=== PATIENT | male | born 1950 | race Caucasian/White ===

== ENCOUNTER → 2017-11-22 12:16 | Outpatient (CLI) | payer MEDICARE, SELFPAY ==
[2017-11-22 12:54] LABS: Alanine Aminotransferase 28 IU/L (21-72); Albumin 4.4 g/dL (3.5-5.0); Albumin Globulin Ratio 1.5 (1.0-2.8); Alkaline Phosphatase 49 U/L (38-126); Aspartate Aminotransferase 31 IU/L (17-59); BUN Creatinine Ratio 21.3 (6-22); Bilirubin Total 1.7 mg/dL (0.2-1.3); Blood Urea Nitrogen 17 mg/dL (9-20); Calcium 9.8 mg/dL (8.4-10.2); Carbon Dioxide 31 mmol/L (22-32); Chloride 97 mmol/L (98-107); Cholesterol 139 mg/dL (140-199); Estimated Glomerular Filt Rate > 60.0 mL/min (>60); Globulin 2.9 g/dL (1.7-4.1); Glucose 160 mg/dL (80-110); HDL Cholesterol 41 mg/dL (40-60); HEMOLYSIS 19 (0-50); LDL Cholesterol Calculated 55 mg/dL (<100); Potassium 4.1 mmol/L (3.4-5.1); Sodium 139 mmol/L (137-145); Total Protein 7.3 g/dL (6.3-8.2); Triglycerides 214 mg/dL (35-150)
[2017-11-22 12:56] LABS: Hemoglobin A1C% w Est Avg Glu 6.9 % (4.0-6.0)
[2017-11-22 13:05] LABS: Add Manual Diff / Slide Review NO; Basophils Percent Auto 0.7 % (0-2); Eosinophils Percent Auto 6.9 % (2-4); Hematocrit 47.2 % (41-53); Hemoglobin 15.8 g/dL (13.5-17.5); Lymphocytes Percent Auto 27.2 % (25-40); Mean Corpuscular HGB Conc 33.6 % (30-36); Mean Corpuscular Hemoglobin 29.6 PG (26-34); Mean Corpuscular Volume 88.3 fL (80-100); Monocytes Percent Auto 5.4 % (3-14); Neutrophils Absolute Auto 4900 /uL (3000-5900); Neutrophils Percent Auto 59.8 % (50-75); Platelet Count 154 X10^3/uL (150-400); Red Blood Cell Count 5.34 X10^6/uL (4.5-5.9); Red Cell Distribution Width 14.3 % (11.6-14.8); White Blood Cell Count 8.2 X10^3/uL (4.5-11.0)
[2017-11-22 16:36] LABS: Thyroid Stimulating Hormone 1.26 uIU/mL (0.47-4.68)
[2017-11-23 16:24] LABS: Microalbumi Creatinin Ratio Ur 12.4 ug/mg CR (<30); Microalbumin Urine Random < 0.6 mg/dL (0-1.6)
== END ==
PROVIDERS: Family Provider Internal Medicine; PCP Internal Medicine; Visit Provider Internal Medicine
DX: E78.5 Hyperlipidemia, unspecified (principal); I10 Essential (primary) hypertension; E11.9 Type 2 diabetes mellitus without complications
CPT/HCPCS: 36415; 80053; 80061; 82043; 82570; 83036; 84443; 85025

== ENCOUNTER → 2018-02-01 14:00 | Outpatient (CLI) | payer MEDICARE, SELFPAY ==
[2018-02-01 14:31] LABS: Add Manual Diff / Slide Review NO; Basophils Percent Auto 0.7 % (0-2); Eosinophils Percent Auto 5.4 % (2-4); Hematocrit 47.4 % (41-53); Hemoglobin 16.2 g/dL (13.5-17.5); Lymphocytes Percent Auto 27.1 % (25-40); Mean Corpuscular HGB Conc 34.1 % (30-36); Mean Corpuscular Hemoglobin 30.1 PG (26-34); Mean Corpuscular Volume 88.1 fL (80-100); Monocytes Percent Auto 5.9 % (3-14); Neutrophils Absolute Auto 5400 /uL (3000-5900); Neutrophils Percent Auto 60.9 % (50-75); Platelet Count 171 X10^3/uL (150-400); Red Blood Cell Count 5.38 X10^6/uL (4.5-5.9); Red Cell Distribution Width 14.1 % (11.6-14.8); White Blood Cell Count 8.8 X10^3/uL (4.5-11.0)
[2018-02-01 14:50] LABS: Alanine Aminotransferase 36 IU/L (21-72); Albumin 4.5 g/dL (3.5-5.0); Albumin Globulin Ratio 1.4 (1.0-2.8); Alkaline Phosphatase 50 U/L (38-126); Aspartate Aminotransferase 42 IU/L (17-59); BUN Creatinine Ratio 18.8 (6-22); Bilirubin Total 1.3 mg/dL (0.2-1.3); Blood Urea Nitrogen 15 mg/dL (9-20); C-Reactive Protein Quant 1.2 mg/dL (<1.0); Carbon Dioxide 35 mmol/L (22-32); Chloride 98 mmol/L (98-107); Estimated Glomerular Filt Rate > 60.0 mL/min (>60); Globulin 3.2 g/dL (1.7-4.1); Glucose 164 mg/dL (80-110); HEMOLYSIS < 15 (0-50); Sodium 143 mmol/L (137-145); Total Protein 7.7 g/dL (6.3-8.2)
[2018-02-01 14:59] LABS: Erythrocyte Sedimentation Rate 4 MM/HR (0-15)
== END ==
PROVIDERS: PCP Internal Medicine; Visit Provider Specialist/Technologist Athletic Trainer
DX: M54.9 Dorsalgia, unspecified (principal); S32.040S Wedge compression fracture of fourth lumbar vertebra, sequela; M10.9 Gout, unspecified; H20.9 Unspecified iridocyclitis; E55.9 Vitamin D deficiency, unspecified
CPT/HCPCS: 36415; 80053; 85025; 85651; 86140

== ENCOUNTER → 2018-02-02 13:00 | Outpatient (CLI) | payer MEDICARE, SELFPAY | PROVIDERS: Family Provider Internal Medicine; PCP Internal Medicine | DX: Z23 Encounter for immunization (principal) | CPT/HCPCS: 90471; 90662 ==

== ENCOUNTER → 2018-06-12 15:33 | Outpatient (CLI) | payer MEDICARE, SELFPAY ==
--- NOTE | 2018-06-12 | DI.RAD.S_ITS ---
PROCEDURE: XR ABDOMEN 1V INDICATIONS: HISTORY OF KIDNEY STONES TECHNIQUE: One view of the abdomen acquired. COMPARISON: [facility], , ABDOMEN 1 VIEW, 04/10/2017, 11:47. FINDINGS: Surgical changes and devices: None. Bowel: Bowel gas pattern is normal. Soft tissues: At least 2 stones are seen right kidney measuring 10 mm and 8 mm, unchanged from the last exam. The left renal contour is obscured by overlying stool content. Visualized solid organ contours appear normal in size. A large amount of stool in colon. Bones: No suspicious bony lesions. Old left femoral neck fracture with internal fixation. Severe left and mild right hip joint degeneration. There is bridging osteophytes throughout the lower thoracic and lumbar spine. There is bilateral SI joint ankylosis. IMPRESSION: 1. 2 right renal calculi, unchanged. 2. A large amount of stool in colon. 3. Ankylosis of the spine and sacroiliac joints, suspicious for ankylosing spondylitis. Recommend clinical correlation. Dictated by: Gissell Kirby M.D. on 06/12/2018 at 17:28 Approved by: Gissell Kirby M.D. on 06/12/2018 at 17:33
== END ==
PROVIDERS: Family Provider Student in an Organized Health Care Education/Training Program; PCP Student in an Organized Health Care Education/Training Program; Visit Provider Urology
DX: Z12.5 Encounter for screening for malignant neoplasm of prostate (principal); Z87.442 Personal history of urinary calculi
CPT/HCPCS: 36415; 74018; 84153

== ENCOUNTER → 2018-07-24 09:19 | Outpatient (CLI) | payer MEDICARE, SELFPAY ==
--- NOTE | 2018-07-24 | DI.ECHO.S_ITS ---
[facility] +---------+ : : [address] : : : : [place], [place] : : : : [id number] : : : : Phone: [phone]---------+ Echocardiogram Report + + :Name: LESLIE FLORENCE Study Date: 07/24/2018 Height: 69 in : :[facility] Exam Location: IS Weight: 175 lb : : Gender: Male BSA: 2.0 m2 : :: 1950 Age: 68 yrs BP: 125/90 mmHg: :Reason For Study: CAD : : Performed By: Kathy Page : :Referring: ARCADIO MENDOZA : + + Interpretation Summary Left ventricular wall thickness is borderline increased. The ejection fraction is estimated to be 60-65%. There is no significant valvular heart disease. Procedure: A two-dimensional transthoracic echocardiogram with color flow and Doppler was performed. The study quality was technically adequate. There is a prior available with images only from 06/06/2003. The patient was in normal sinus rhythm during the exam. Left Ventricle: The left ventricular cavity is small. Left ventricular wall thickness is borderline increased. The ejection fraction is estimated to be 60-65%. There are no focal wall motion abnormalities. Right Ventricle: The right ventricle is normal in size and function. Atria: Both atria are normal in size. There is no Doppler evidence for an interatrial shunt. Mitral Valve: The mitral valve is normal in structure and function. There is trace mitral regurgitation. Aortic Valve: The aortic valve is trileaflet. The aortic valve opens well. No aortic regurgitation is present. Tricuspid Valve: The tricuspid valve is normal in structure and function. There is a trace or physiologic amount of tricuspid regurgitation. Pulmonary artery pressures cannot be estimated because of the lack of a measurable TR jet velocity. Pulmonic Valve: The pulmonic valve is not well visualized. There is trace pulmonic regurgitation. Great Vessels: The aortic root is normal size. The ascending aorta is normal in size. The pulmonary artery is not well visualized, but is probably normal size. The IVC is of normal diameter and collapses greater than 50% with a sniff. This suggests a low right atrial pressure of 3 mm Hg. Pericardium/ Pleura There is no pericardial effusion. MMode/2D Measurements & Calculations LVIDd: 3.7 cm Ao root diam: 3.3 cm LVIDs: 2.7 cm asc Aorta Diam: 3.3 cm FS: 26.5 % EPSS: 0.45 cm IVSd: 1.0 cm LVPWd: 1.1 cm LV chairez. diameter/BSA (cm/m^2): 1.9 LV sys. diameter/BSA (cm/m^2): 1.4 LA A2 area: 19.3 cm2 RA long axis: 4.9 cm LA A4 area: 16.7 cm2 RA area: 17.4 cm2 LA length (vol): 4.9 cm RA vol: 52.8 ml LA vol: 55.6 ml RA : 27.0 ml/m2 LA vol index: 28.5 ml/m2 IVC diam: 1.9 cm RVD1 (basal): 3.6 cm TAPSE: 2.0 cm Doppler Measurements & Calculations Ao V2 max: 120.6 cm/sec LVOT Max Calvin: 89.2 cm/sec Ao V2 mean: 86.1 cm/sec LV V1 max P.2 mmHg Ao max P.8 mmHg LV V1 VTI: 16.7 cm Ao mean P.3 mmHg sev ratio: 0.70 Ao V2 VTI: 23.9 cm MV E max calvin: 66.2 cm/sec PA V2 max: 79.0 cm/sec MV A max calvin: 88.3 cm/sec PA V2 mean: 55.9 cm/sec MV E/A: 0.75 PA mean P.4 mmHg Med Peak E' Calvin: 3.9 cm/sec PA Accel Time: 0.10 sec E/E' med: 17.0 Lat Peak E' Calvin: 4.3 cm/sec E/E' lat: 15.3 E/e' average: 16.2 MV dec time: 0.27 sec MV P1/2t: 79.7 msec MV P1/2t max calvin: 66.9 cm/sec MVA(P1/2t): 2.8 cm2 Reading Physician:05:34 PM
--- NOTE | 2018-07-24 09:23 | DI.US.S_ITS ---
PROCEDURE: US ABD AORTA ANEURYSM SCREEN INDICATIONS: AAA screen in former smoker TECHNIQUE: Real time scanning was performed of the aorta and iliac arteries, with image documentation. COMPARISON: [facility], CT, PELVIS WITH CONTRAST, 11/01/2014, 17:28. FINDINGS: Aorta: Proximal aortic diameter measures 2.3 cm. Mid-aorta measures 1.7 cm. Distal aortic diameter is 1.5 cm. Iliac arteries: Right common iliac artery measures 0.9 cm. Left common iliac artery measures 0.9 cm. IMPRESSION: No evidence for abdominal aortic aneurysm. Dictated by: Gissell Kirby M.D. on 07/24/2018 at 12:39 Approved by: Gissell Kirby M.D. on 07/24/2018 at 12:40
== END ==
PROVIDERS: PCP Student in an Organized Health Care Education/Training Program; Visit Provider Student in an Organized Health Care Education/Training Program
DX: Z13.6 Encounter for screening for cardiovascular disorders (principal); I25.10 Atherosclerotic heart disease of native coronary artery without angina pectoris; Z87.891 Personal history of nicotine dependence
CPT/HCPCS: 76706; 93306

== ENCOUNTER → 2018-10-15 11:15 | Outpatient (CLI) | payer MEDICARE, SELFPAY ==
[2018-10-15 13:09] LABS: Blood Urea Nitrogen 16 mg/dL (9-20); Calcium 9.6 mg/dL (8.4-10.2); Carbon Dioxide 30 mmol/L (22-32); Chloride 97 mmol/L (98-107); Estimated Glomerular Filt Rate > 60.0 mL/min (>60); Glucose 142 mg/dL (80-110); HEMOLYSIS 21 (0-50); Potassium 3.9 mmol/L (3.4-5.1); Sodium 137 mmol/L (137-145)
[2018-10-15 16:29] LABS: Creatinine Urine Random 84.6 mg/dL
[2018-10-15 16:35] LABS: Microalbumi Creatinin Ratio Ur 9.4 ug/mg CR (<30); Microalbumin Urine Random 0.8 mg/dL (0-1.6)
== END ==
PROVIDERS: PCP Student in an Organized Health Care Education/Training Program; Visit Provider Student in an Organized Health Care Education/Training Program
DX: E11.9 Type 2 diabetes mellitus without complications (principal); I10 Essential (primary) hypertension
CPT/HCPCS: 36415; 80048; 82043; 82570; 83036

== ENCOUNTER → 2019-03-05 14:55 | Outpatient (CLI) | payer MEDICARE, SELFPAY | PROVIDERS: PCP Student in an Organized Health Care Education/Training Program | DX: Z23 Encounter for immunization (principal) | CPT/HCPCS: 90471; 90662 ==

== ENCOUNTER → 2019-04-17 14:31 | Outpatient (CLI) | payer MEDICARE, SELFPAY ==
[2019-04-17 15:40] LABS: BUN Creatinine Ratio 22.5 (6-22); Blood Urea Nitrogen 18 mg/dL (9-20); Calcium 9.8 mg/dL (8.4-10.2); Carbon Dioxide 27 mmol/L (22-32); Chloride 101 mmol/L (98-107); Estimated Glomerular Filt Rate > 60.0 mL/min (>60); Glucose 135 mg/dL (80-110); HEMOLYSIS 15 (0-50); Potassium 4.5 mmol/L (3.4-5.1); Sodium 140 mmol/L (137-145)
[2019-04-17 15:52] LABS: Hemoglobin A1C% w Est Avg Glu 7.6 % (4.0-6.0)
== END ==
PROVIDERS: PCP Student in an Organized Health Care Education/Training Program; Visit Provider Student in an Organized Health Care Education/Training Program
DX: E11.9 Type 2 diabetes mellitus without complications (principal); I10 Essential (primary) hypertension; M10.9 Gout, unspecified
CPT/HCPCS: 36415; 80048; 83036

== ENCOUNTER → 2019-06-27 14:39 | Outpatient (CLI) | payer MEDICARE, SELFPAY ==
[2019-06-27 16:36] LABS: Prostate Specific Antigen 2.23 ng/mL (0.10-4.00)
== END ==
PROVIDERS: PCP Student in an Organized Health Care Education/Training Program; Referring Provider Urology; Visit Provider Urology
DX: Z12.5 Encounter for screening for malignant neoplasm of prostate (principal)
CPT/HCPCS: 36415; 84153; G0103

== ENCOUNTER → 2019-07-08 15:00 | Outpatient (CLI) | payer MEDICARE, SELFPAY ==
[2019-07-08 18:04] LABS: Add Manual Diff / Slide Review NO; Basophils Absolute Auto 100 /uL (0-100); Basophils Percent Auto 0.6 % (0-2); Eosinophils Absolute Auto 700 /uL (0-450); Eosinophils Percent Auto 7.7 % (2-4); Hematocrit 50.4 % (41-53); Hemoglobin 16.9 g/dL (13.5-17.5); Lymphocytes Absolute Auto 2400 /uL (1100-4500); Lymphocytes Percent Auto 26.3 % (25-40); Mean Corpuscular HGB Conc 33.5 % (30-36); Mean Corpuscular Hemoglobin 29.8 PG (26-34); Monocytes Absolute Auto 400 /uL (0-900); Monocytes Percent Auto 4.8 % (3-14); Neutrophils Absolute Auto 5600 /uL (1500-7000); Neutrophils Percent Auto 60.6 % (50-75); Platelet Count 142 X10^3/uL (150-400); Red Blood Cell Count 5.66 X10^6/uL (4.5-5.9); Red Cell Distribution Width 14.7 % (11.6-14.8); White Blood Cell Count 9.3 X10^3/uL (4.5-11.0)
[2019-07-08 18:07] LABS: BUN Creatinine Ratio 23.3 (6-22); Blood Urea Nitrogen 21 mg/dL (9-20); Carbon Dioxide 26 mmol/L (22-32); Chloride 99 mmol/L (98-107); Cholesterol 127 mg/dL (140-199); Estimated Glomerular Filt Rate > 60.0 mL/min (>60); Glucose 133 mg/dL (80-110); HDL Cholesterol 36 mg/dL (40-60); HEMOLYSIS < 15 (0-50); LDL Cholesterol Calculated 36 mg/dL (<100); Potassium 4.1 mmol/L (3.4-5.1); Sodium 141 mmol/L (137-145); Triglycerides 274 mg/dL (35-150)
== END ==
PROVIDERS: PCP Student in an Organized Health Care Education/Training Program; Referring Provider Internal Medicine Cardiovascular Disease; Visit Provider Internal Medicine Cardiovascular Disease
DX: E78.5 Hyperlipidemia, unspecified (principal); I10 Essential (primary) hypertension
CPT/HCPCS: 36415; 80048; 80061; 85025

== ENCOUNTER → 2019-09-25 13:44 | Outpatient (CLI) | payer MEDICARE, SELFPAY ==
[2019-09-25 15:15] LABS: Hemoglobin A1C% w Est Avg Glu 7.2 % (4.0-6.0)
[2019-09-25 17:45] LABS: Microalbumi Creatinin Ratio Ur 14.8 ug/mg CR (<30); Microalbumin Urine Random 0.8 mg/dL (0-1.6)
== END ==
PROVIDERS: PCP Student in an Organized Health Care Education/Training Program; Referring Provider Student in an Organized Health Care Education/Training Program; Visit Provider Student in an Organized Health Care Education/Training Program
DX: E11.9 Type 2 diabetes mellitus without complications (principal)
CPT/HCPCS: 36415; 82043; 82570; 83036

== ENCOUNTER → 2020-01-21 14:30 | Outpatient (CLI) | payer MEDICARE, SELFPAY ==
[2020-01-21 15:30] LABS: Hemoglobin A1C% w Est Avg Glu 6.6 % (4.0-6.0)
== END ==
PROVIDERS: PCP Student in an Organized Health Care Education/Training Program; Referring Provider Student in an Organized Health Care Education/Training Program; Visit Provider Student in an Organized Health Care Education/Training Program
DX: E11.9 Type 2 diabetes mellitus without complications (principal)
CPT/HCPCS: 36415; 83036

== ENCOUNTER → 2020-02-29 14:09 | Outpatient (CLI) | payer MEDICARE, SELFPAY ==
[2020-03-02 06:05] LABS: COVID19 Sendout Not Detected (Not Detect)
== END ==
PROVIDERS: PCP Student in an Organized Health Care Education/Training Program; Visit Provider Physician Assistant
DX: Z01.812 Encounter for preprocedural laboratory examination (principal)
CPT/HCPCS: 87635

== ENCOUNTER 2020-03-03 06:05 | Day surgery (SDC) | payer MEDICARE, SELFPAY ==
[2020-03-03] MEDS: PROPARACAINE 0.5% OPHTH SOL 2 DROPS EYE-OP (07:04)
[2020-03-03 07:09] VITALS: BMI 25.1
[2020-03-03] MEDS: CATARACT EYE COMPOUND (10 DROPS/SYRINGE) 3 DROPS EYE-OP (07:09)
[2020-03-03 07:16] VITALS: BP 133/80; PULSE 84; RESP 16; TEMP 37.2; O2SAT 97
[2020-03-03 07:18] VITALS: BMI 25.1
--- NOTE | 2020-03-03 07:36 | PM.PREOP ---
Pre-operative Note Interval Note History & Physical reviewed/Exam performed by Physician: Yes Changes to H&P: No
--- NOTE | 2020-03-03 07:36 | PM.OP.1 ---
Operative Date/Time/Diagnoses Pre-op diagnosis: Nuclear Cataract Left eye Post-op diagnosis: same Procedure & Clinicians Same procedure as scheduled: Yes Surgeon: Nico Mills Anesthesia Type: MAC +/- and Sedation Operative Notes Procedure in detail: Patient brought to the operating suite. Tetracaine drops placed in the left eye. Marking instrument was used to david vertical and horizontal meridians. Patient was prepped and draped in sterile manner. Wire lid speculum was placed in the eye. marking instrument was used to david 110 degree meridian. Betadine drops were placed on the eye. This was irrigated. Lidocaine jelly was placed on the eye. A paracentesis port was created with a side-port blade. 0.1 mL 1% preservative free lidocaine was injected into the anterior chamber. The anterior chamber was deepened with viscoelastic. 2.6 mm keratome was used to create a temporal clear corneal incision. Cystotome and Utrata forceps were used to create continuous tear capsulorrhexis. Balanced salt solution was used to hydro dissect the nucleus. The phacoemulsification handpiece was inserted and the nucleus was removed using the stop and chop technique. The irrigation aspiration handpiece was inserted and the remaining cortex was removed. Anterior chamber was deepened with viscoelastic. An Hayward [id number] intraocular lens with a power of 20.0 was injected into the capsular bag. Irrigation aspiration handpiece was inserted and the remaining viscoelastic was removed. The lens was rotated to the 110 degree meridian. Incision was hydrated with balanced salt solution and found to be leak free with pressure with Weck-Mimi sponges. 0.1 mL Vigamox injected anterior chamber. 0.3 mL Kenalog 10 mg was injected subconjunctivally. Lid speculum was removed. The patient left the operating room in excellent condition. Complications: none Post-operative Condition: stable Disposition: same day surgery
[2020-03-03] MEDS: PHENYLEPHRINE/LIDOCAINE VIAL (OR) 0.2 ML EYE-OP (08:20)
[2020-03-03] MEDS: TRIAMCINOLONE 50 MG/5 ML VIAL INJ (08:21)
[2020-03-03] MEDS: MOXIFLOXACIN INJ 5 MG/ML VIAL EYE-OP (08:21)
[2020-03-03] MEDS: CHONDROIDTIN/SOD HYALURONATE 1.05 ML SYRINGE INTRAOCULA (08:21)
[2020-03-03] MEDS: LIDOCAINE JELLY 2% 5 ML 1 APPLIC TOP (08:22)
[2020-03-03] MEDS: TETRACAINE 0.5% OPHTH DROPS 4 ML 2 DROPS EYE-OP (08:22)
[2020-03-03] MEDS: BALANCED SALT IRRIG SOLN NO.2 500 ML, EPINEPHrine 1 MG IRR (08:22)
[2020-03-03 09:45] VITALS: BP 110/73; PULSE 78; RESP 16; TEMP 36.6; O2SAT 96
== END 2020-03-03 08:49 | disposition home or self-care (01) ==
PROVIDERS: PCP Student in an Organized Health Care Education/Training Program; Referring Provider Student in an Organized Health Care Education/Training Program; Visit Provider Ophthalmology
PROC: (CPT 66984; principal; 2020-03-03 07:45)
DX: H25.12 Age-related nuclear cataract, left eye (principal); E11.9 Type 2 diabetes mellitus without complications; Z79.84 Long term (current) use of oral hypoglycemic drugs
CPT/HCPCS: 66984; J0171; J2250; J2704; J3301; V2787

== ENCOUNTER → 2020-03-14 13:43 | Outpatient (CLI) | payer MEDICARE, SELFPAY ==
[2020-03-16 02:22] LABS: COVID19 Sendout Not Detected (Not Detect)
== END ==
PROVIDERS: PCP Student in an Organized Health Care Education/Training Program; Visit Provider Nurse Practitioner
DX: Z11.59 Encounter for screening for other viral diseases (principal)
CPT/HCPCS: 87635

== ENCOUNTER 2020-03-17 06:24 | Day surgery (SDC) | payer MEDICARE, SELFPAY ==
[2020-03-17] MEDS: PROPARACAINE 0.5% OPHTH SOL 2 DROPS EYE-OP (07:00)
[2020-03-17] MEDS: CATARACT EYE COMPOUND (10 DROPS/SYRINGE) 3 DROPS EYE-OP (07:04)
[2020-03-17 07:05] VITALS: BMI 15.5
[2020-03-17 07:10] VITALS: BP 122/73; PULSE 74; RESP 14; TEMP 37.2; O2SAT 98
--- NOTE | 2020-03-17 07:29 | PM.PREOP ---
Pre-operative Note Interval Note History & Physical reviewed/Exam performed by Physician: Yes Changes to H&P: No
--- NOTE | 2020-03-17 07:30 | P.OP_ITS ---
Operative Date/Time/Diagnoses Pre-op diagnosis: Nuclear cataract right eye Procedure & Clinicians Procedure: Cataract Surgery Same procedure as scheduled: Yes Surgeon: Nico Mills Anesthesia Type: MAC +/- and Sedation Operative Notes Procedure in detail: Patient brought to the operating suite. Tetracaine drops placed in the right eye. marking instrument was used to david the vertical and horizontal meridians. Patient was prepped and draped in sterile manner. Wire lid speculum was placed in the eye. The marking instrument was used to david the 65 degree meridian. Betadine drops were placed on the eye. This was irrigated. Lidocaine jelly was placed on the eye. A paracentesis port was created with a side-port blade. 0.1 mL 1% preservative free lidocaine was injected into the anterior chamber. The anterior chamber was deepened with viscoelastic. 2.6 mm keratome was used to create a temporal clear corneal incision. Cystotome and Utrata forceps were used to create continuous tear capsulorrhexis. Balanced salt solution was used to hydro dissect the nucleus. The phacoemulsification handpiece was inserted and the nucleus was removed using the stop and chop technique. The irrigation aspiration handpiece was inserted and the remaining cortex was removed. Anterior chamber was deepened with viscoelastic. An Hayward [id number] intraocular lens with a power of 20.0 was injected into the capsular bag. Irrigation aspiration handpiece was inserted and the remaining viscoelastic was removed. The lens was rotated to the 65 degree meridian. Incision was hydrated with balanced salt solution and found to be leak free with pressure with Weck- Mimi sponges. 0.1 mL Vigamox injected anterior chamber. 0.3 mL Kenalog 10 mg was injected subconjunctivally. Lid speculum was removed. The patient left the operating room in excellent condition. Complications: none Post-operative Condition: stable Disposition: same day surgery
[2020-03-17] MEDS: CHONDROIDTIN/SOD HYALURONATE 1.05 ML SYRINGE INTRAOCULA (07:57)
[2020-03-17] MEDS: PHENYLEPHRINE/LIDOCAINE VIAL (OR) 0.2 ML EYE-OP (07:57)
[2020-03-17] MEDS: MOXIFLOXACIN INJ 5 MG/ML VIAL EYE-OP (07:57)
[2020-03-17] MEDS: LIDOCAINE JELLY 2% 5 ML 1 APPLIC TOP (07:57)
[2020-03-17] MEDS: TRIAMCINOLONE 50 MG/5 ML VIAL INJ (07:58)
[2020-03-17] MEDS: TETRACAINE 0.5% OPHTH DROPS 4 ML 2 DROPS EYE-OP (07:58)
[2020-03-17] MEDS: BALANCED SALT IRRIG SOLN NO.2 500 ML, EPINEPHrine 1 MG IRR (07:58)
[2020-03-17 08:10] VITALS: BP 110/69; PULSE 83; RESP 16; TEMP 36.3; O2SAT 95
== END 2020-03-17 08:24 | disposition home or self-care (01) ==
PROVIDERS: PCP Student in an Organized Health Care Education/Training Program; Referring Provider Student in an Organized Health Care Education/Training Program; Visit Provider Ophthalmology
PROC: (CPT 66984; principal; 2020-03-17 07:45)
DX: H25.11 Age-related nuclear cataract, right eye (principal); E11.9 Type 2 diabetes mellitus without complications; Z79.84 Long term (current) use of oral hypoglycemic drugs; I10 Essential (primary) hypertension; E78.5 Hyperlipidemia, unspecified; I25.10 Atherosclerotic heart disease of native coronary artery without angina pectoris; I25.2 Old myocardial infarction
CPT/HCPCS: 66984; J0171; J2250; J2704; J3301; V2787

== ENCOUNTER → 2020-03-31 | Outpatient (CLI) | payer MEDICARE, SELFPAY | PROVIDERS: PCP Student in an Organized Health Care Education/Training Program; Referring Provider Internal Medicine; Visit Provider Internal Medicine | DX: Z23 Encounter for immunization (principal) | CPT/HCPCS: 90471; 90682 ==

== ENCOUNTER → 2020-04-03 13:01 | Outpatient (CLI) | payer MEDICARE, SELFPAY | PROVIDERS: PCP Student in an Organized Health Care Education/Training Program; Referring Provider Student in an Organized Health Care Education/Training Program; Visit Provider Internal Medicine Rheumatology | DX: M81.0 Age-related osteoporosis without current pathological fracture (principal) | CPT/HCPCS: 77080 ==

== ENCOUNTER → 2020-07-06 13:37 | Outpatient (CLI) | payer MEDICARE, SELFPAY ==
--- NOTE | 2020-07-06 | DI.RAD.S_ITS ---
PROCEDURE: XR ABDOMEN 1V INDICATIONS: HISTORY OF KIDNEY STONES TECHNIQUE: One view of the abdomen acquired. COMPARISON: [facility], CR, XR ABDOMEN 1 VIEW, 07/01/2019, 13:12. [facility], CR, XR ABDOMEN 1V, 06/12/2018, 15:58. FINDINGS: Surgical changes and devices: None. Bowel: Bowel gas pattern is normal. Soft tissues: There are two calcifications in the right mid abdomen projecting in the location of the right renal pelvis and lower pole , stable size and position compared to the prior study. No distinct left-sided calcifications. Visualized solid organ contours appear normal in size. Bones: Changes of ankylosing spondylitis in the sacroiliac joints and spine. Hip pins in the left femoral neck. IMPRESSION: 1. Stable right probable intrarenal calcifications. 2. Stable changes consistent with ankylosing spondylitis. Dictated by: Ashli Miramontes M.D. on 07/06/2020 at 16:37 Approved by: Ashli Miramontes M.D. on 07/06/2020 at 16:39
[2020-07-06 15:14] LABS: Hemoglobin A1C% w Est Avg Glu 7.1 % (4.0-6.0)
[2020-07-06 15:46] LABS: Prostate Specific Antigen 2.26 ng/mL (0.10-4.00)
[2020-07-07 15:06] LABS: Creatinine Urine Random 47.1 mg/dL
[2020-07-07 15:15] LABS: Microalbumin Urine Random < 0.6 mg/dL (0-1.6)
== END ==
PROVIDERS: PCP Student in an Organized Health Care Education/Training Program; Referring Provider Urology; Visit Provider Urology
DX: R35.1 Nocturia (principal); E11.9 Type 2 diabetes mellitus without complications; Z87.442 Personal history of urinary calculi
CPT/HCPCS: 36415; 74018; 82043; 82570; 83036; 84153

== ENCOUNTER → 2020-08-20 15:05 | Outpatient (CLI) | payer MEDICARE, SELFPAY ==
[2020-08-20] MEDS: COVID-19 VACC, Ad26(JANSSEN)/PF 0.5 ML IM (15:19)
== END ==
PROVIDERS: PCP Student in an Organized Health Care Education/Training Program; Visit Provider Internal Medicine
DX: Z23 Encounter for immunization (principal)
CPT/HCPCS: 0031A; 91303

== ENCOUNTER → 2021-01-01 14:40 | Outpatient (CLI) | payer MEDICARE, SELFPAY ==
[2021-01-01 15:34] LABS: BUN Creatinine Ratio 24.2 (6-22); Blood Urea Nitrogen 22 mg/dL (9-20); Calcium 9.9 mg/dL (8.4-10.2); Carbon Dioxide 26 mmol/L (22-32); Chloride 98 mmol/L (98-107); Estimated Glomerular Filt Rate > 60.0 mL/min (>60); Glucose 159 mg/dL (80-110); HEMOLYSIS 19 (0-50); Sodium 135 mmol/L (137-145)
[2021-01-01 15:41] LABS: Hemoglobin A1C% w Est Avg Glu 6.7 % (4.0-6.0)
== END ==
PROVIDERS: PCP Student in an Organized Health Care Education/Training Program; Referring Provider Student in an Organized Health Care Education/Training Program; Visit Provider Student in an Organized Health Care Education/Training Program
DX: E11.9 Type 2 diabetes mellitus without complications (principal); I10 Essential (primary) hypertension
CPT/HCPCS: 36415; 80048; 83036

== ENCOUNTER → 2021-01-08 09:13 | Outpatient (CLI) | payer MEDICARE, SELFPAY ==
[2021-01-08 11:03] LABS: COVID19 -Nasal RAPID Negative (Negative)
== END ==
PROVIDERS: PCP Student in an Organized Health Care Education/Training Program; Visit Provider Surgery
DX: Z01.812 Encounter for preprocedural laboratory examination (principal); Z20.822 Contact with and (suspected) exposure to COVID-19
CPT/HCPCS: 87635; C9803

== ENCOUNTER 2021-01-11 06:21 | Day surgery (SDC) | payer MEDICARE, SELFPAY ==
[2021-01-11] VITALS (9 sets, daily range): BP systolic 84–135; BP diastolic 50–77; PULSE 63–72; RESP 10–18; TEMP 36.1–36.3; O2SAT 93–100; BMI 52.4
--- NOTE | 2021-01-11 | PATH_ITS ---
[facility] Accession Number: [id number] . 01 Material submitted: . cecum - CECUM BIOPSY . 02 Diagnosis: Cecum, Biopsy: Colonic mucosa with a small benign lymphoid aggregate and no other diagnostic abnormality. Negative for active, chronic and microscopic colitis. Negative for dysplasia and malignancy. V 01/13/2021 1051 Local . 02 Electronically signed: . Saba Merlos MD, Pathologist NPI- [id number] . 01 Gross description: . CECUM BIOPSY: Received in formalin are 2 fragment(s) of rahman, soft tissue measuring 0.2 x 0.2 x 0.2 cm to 0.2 x 0.1 x 0.1 cm submitted entirely in 1 cassette(s) /TALIA 01/12/2021 0447 Local . 02 Pathologist provided ICD-10: Z12.11 . 02 CPT . 872592 Performed at: 01 [facility] [address] [facility], [place], [place] [id number] MD Juanjo Celis MD Phone: [phone] Performed at: 02 [facility] [address] [place], [place] [id number] MD Saba Merlos MD Phone: [phone]
[2021-01-11] MEDS: LACTATED RINGERS 1,000 ML 42 ML IV (07:36)
--- NOTE | 2021-01-11 07:47 | P.HP_ITS ---
History of Present Illness History of Present Illness Date Patient Seen: 01/11/21 Time Patient Seen: 07:47 Chief complaint: SDC Narrative: The patient presents for colorectal sreening. Previous colonoscopy 20 years ago normal. No personal or family history of colon cancer. On further history denies any recent gastrointestinal symptoms. No nausea, vomiting, abdominal pain, loss of appetite, unexplained weight loss, change in bowel habits, diarrhea, constipation, melena, hematochezia, or bright red blood per rectum. Patient History Medical History Ankylosing spondylitis Diverticular disease Kidney stones Myocardial infarction (~06/06/03) Family & Social History Family History Brother Age: 71 Lung cancer, lower lobe Ankylosing spondylitis Father Cancer Social History: household members none Tobacco & Substance use: Tobacco type cigars Smoking Status Current every day smoker alcohol intake current alcohol intake frequency holiday/special occasion Substance Use Type does not use Meds Home Medications and Allergies Home Medications Medication Instructions Recorded Confirmed Type aspirin 81 mg chewable tablet 81 mg PO DAILY 06/28/18 01/11/21 History (Aspirin Children[facility]) lisinopril 20 1 tab PO DAILY #90 tab 07/07/20 01/11/21 Rx mg-hydrochlorothiazide 25 mg tablet allopurinol 300 mg tablet 300 mg PO QDAY #90 tab 07/20/20 01/06/21 Rx atorvastatin 40 mg tablet 40 mg PO BEDTIME #90 tab 07/20/20 01/06/21 Rx metoprolol tartrate 100 mg tablet 100 mg PO BID #180 tab 07/20/20 01/11/21 Rx (Lopressor) empagliflozin 10 mg tablet 10 mg PO DAILY #90 tab 08/11/20 01/06/21 Rx (Jardiance) amlodipine 2.5 mg tablet 2.5 mg PO DAILY #90 tab 09/28/20 01/11/21 Rx metformin 500 mg tablet See Rx Instructions .ROUTE 12/25/20 01/11/21 Rx .COMPLEX #360 tab Glucose: Test Strips Accu-Chek #100 each 12/30/20 01/06/21 Rx Allergies Allergy/AdvReac Type Severity Reaction Status Date / Time oxycodone AdvReac Intermediate VOMITING Verified 01/11/21 07:02 Review of Systems Review of Systems ROS: Yes All systems reviewed with the patient and are negative except as oth erwise documented Exam Vital Signs (past 8 hours): - 01/11/21 07:11 Temperature 97.4 F L Pulse Rate 63 Respiratory Rate 18 Blood Pressure 135/70 Pulse Oximetry 100 Oxygen Delivery Method Room Air Narrative Exam Narrative: Constitutional-he is oriented to person, place and time. No apparent distress Cardiovascular- regular rate, no peripheral edema Pulmonary-unlabored respiratory effort, no audible wheezing Abdominal-soft, non-tender, non-distended Musculoskeletal-no cyanosis or clubbing Neurological-nonfocal, normal strength throughout, normal gait. Skin-warm and dry Assessment & Plan Assessment & Plan narrative: The patient requires colorectal screening and colonoscopy is recommended. Technical details were discussed. Risks, benefits, alternatives explained. Risks including but not limited to myocardial infarction, aspiration, bleeding, pain, missed lesion, incomplete examination, need for further radiographic studies, colonic perforation, and need for major abdominal surgery were discussed. All questions were answered to their satisfaction, and they are in agreement with this plan.
[2021-01-11] MEDS: MIDAZOLAM 5 MG/5 ML VIAL IV (07:53)
[2021-01-11] MEDS: fentaNYL 250 MCG/5 ML INJ IV (07:53)
--- NOTE | 2021-01-11 08:17 | PM.OP.ENDO ---
Operative Date/Time/Diagnoses Date of procedure: 01/11/21 Time of procedure: 08:17 Pre-op diagnosis: screening. Post-op diagnosis: same Procedure & Clinicians Study performed: colonoscopy Same procedure as scheduled: Yes Indications: screening Surgeon: Boo Casas Procedure Notes Procedure in detail: Medications: Conscious sedation using 4mg IV midazolam and 100mcg IV of fentanyl The history and physical was performed/updated and the patient is ASA class is 2. The procedure was discussed in detail with the patient. Potential risks complications including infection, bleeding, missed diagnosis, perforation, need for surgery, and were explained. Their questions were answered and informed consent was obtained. Patient was brought to the procedure room and placed standard monitoring equipment. The patient's vital signs were monitored continuously throughout the entire procedure. Prior to starting time-out was performed. The patient was placed in the left lateral recumbent position. Procedural sedation was administered. Examination began with a thorough inspection of the perianal area there was no evidence of fissures, fistulae, external hemorrhoids or cutaneous malignancy. The colonoscopy scope was then placed into the anal canal and was advanced to the cecum, which was identified by the ileocecal valve, the appendiceal orifice and the confluence of the taenia. The scope was then slowly withdrawn examining colon thoroughly in all directions, irrigating it of any residual stool. FINDINGS 1. No masses or polyps 2. Mild colitis of the ascending colon. Biopsy of cecum taken with forceps. 3. Grade 2 internal hemorrhoids. The patient tolerated the procedure well. They will be discharged once criteria are met. The prep was of good/excellent quality. The withdrawl time was 7 minutes. The sedation time was 20 minutes. Specimen(s): other (cecum) Complications: none Impression: colitis Post-procedure Plan for aftercare: will follow up with biopsy result Disposition: same day surgery
--- NOTE | 2021-01-11 09:15 | SUR.PHASEII ---
Pt up and dressed and ready for discharge. Sitting at edge of bed. Last BP while patient standing. Pt states he runs a SBP at home at times 90-100.
== END 2021-01-11 09:19 | disposition home or self-care (01) ==
PROVIDERS: PCP Student in an Organized Health Care Education/Training Program; Referring Provider Surgery; Visit Provider Surgery
PROC: 0DJD8ZZ Inspection of Lower Intestinal Tract, Via Natural or Artificial Opening Endoscopic (ICD-10-PCS; CPT 45378; principal; 2021-01-11 07:45)
DX: Z12.11 Encounter for screening for malignant neoplasm of colon (principal); I25.2 Old myocardial infarction; K64.1 Second degree hemorrhoids; K52.9 Noninfective gastroenteritis and colitis, unspecified
CPT/HCPCS: 45380; 82962; 99152; J2250; J3010

== ENCOUNTER → 2021-04-14 13:05 | Outpatient (CLI) | payer MEDICARE, SELFPAY ==
[2021-04-14 14:34] LABS: Add Manual Diff / Slide Review NO; Basophils Absolute Auto 0 /uL (0-100); Basophils Percent Auto 0.4 % (0-2); Eosinophils Absolute Auto 700 /uL (0-450); Eosinophils Percent Auto 6.8 % (2-4); Hematocrit 49.2 % (41-53); Hemoglobin 16.5 g/dL (13.5-17.5); Lymphocytes Absolute Auto 2500 /uL (1100-4500); Mean Corpuscular HGB Conc 33.5 % (30-36); Mean Corpuscular Hemoglobin 30.1 PG (26-34); Mean Corpuscular Volume 89.8 fL (80-100); Monocytes Absolute Auto 600 /uL (0-900); Monocytes Percent Auto 6.4 % (3-14); Neutrophils Absolute Auto 6100 /uL (1500-7000); Neutrophils Percent Auto 61.4 % (50-75); Platelet Count 160 X10^3/uL (150-400); Red Blood Cell Count 5.48 X10^6/uL (4.5-5.9); Red Cell Distribution Width 14.4 % (11.6-14.8)
[2021-04-14 14:54] LABS: Erythrocyte Sedimentation Rate 4 MM/HR (0-15)
[2021-04-14 15:46] LABS: Alanine Aminotransferase 27 IU/L (<50); Albumin 4.3 g/dL (3.5-5.0); Albumin Globulin Ratio 1.7 (1.0-2.8); Alkaline Phosphatase 56 U/L (38-126); Aspartate Aminotransferase 35 IU/L (17-59); BUN Creatinine Ratio 18.7 (6-22); Blood Urea Nitrogen 17 mg/dL (9-20); C-Reactive Protein Quant 0.7 mg/dL (<1.0); Calcium 9.7 mg/dL (8.4-10.2); Carbon Dioxide 26 mmol/L (22-32); Chloride 97 mmol/L (98-107); Estimated Glomerular Filt Rate > 60.0 mL/min (>60); Globulin 2.5 g/dL (1.7-4.1); Glucose 165 mg/dL (80-110); HEMOLYSIS < 15 (0-50); Potassium 3.7 mmol/L (3.4-5.1); Sodium 136 mmol/L (137-145); Total Protein 6.8 g/dL (6.3-8.2)
[2021-04-14 16:02] LABS: Free T4, Direct Thyroxine 1.37 ng/dL (0.78-2.19)
[2021-04-14 16:16] LABS: Thyroid Stimulating Hormone 3.13 uIU/mL (0.47-4.68)
[2021-04-14 16:28] LABS: Vitamin D 25 Hydroxy (D3) 29.6 ng/mL (30.0-100.0)
[2021-04-15 08:13] LABS: Parathyroid Hormone Int 47 pg/mL (15-65)
[2021-04-16 18:33] LABS: Albumin 3.7 g/dL (2.9-4.4); Alpha-1-Globulin 0.2 g/dL (0.0-0.4); Alpha-2-Globulin 0.9 g/dL (0.4-1.0); Gamma Globulin 0.8 g/dL (0.4-1.8); Protein, Total 6.7 g/dL (6.0-8.5)
== END ==
PROVIDERS: PCP Student in an Organized Health Care Education/Training Program; Referring Provider Internal Medicine Rheumatology; Visit Provider Internal Medicine Cardiovascular Disease
DX: Z51.81 Encounter for therapeutic drug level monitoring (principal); M81.8 Other osteoporosis without current pathological fracture; M81.0 Age-related osteoporosis without current pathological fracture; I10 Essential (primary) hypertension
CPT/HCPCS: 36415; 80053; 82306; 83970; 84155; 84165; 84439; 84443; 85025; 85651; 86140

== ENCOUNTER → 2021-08-26 15:01 | Outpatient (CLI) | payer MEDICARE, SELFPAY ==
[2021-08-26 18:53] LABS: BUN Creatinine Ratio 25.8 (6-22); Blood Urea Nitrogen 24 mg/dL (9-20); Estimated Glomerular Filt Rate > 60 mL/min (>60)
[2021-08-26 19:06] LABS: Hemoglobin A1C% w Est Avg Glu 7.7 % (4.0-6.0)
[2021-08-26 19:23] LABS: Prostate Specific Antigen Scrn 2.82 ng/mL (0.1-4.0)
[2021-08-26 19:43] LABS: Creatinine Urine Random 58.3 mg/dL
[2021-08-26 19:54] LABS: Microalbumin Urine Random < 0.6 mg/dL (0-1.6)
== END ==
PROVIDERS: PCP Student in an Organized Health Care Education/Training Program; Referring Provider Student in an Organized Health Care Education/Training Program; Visit Provider Student in an Organized Health Care Education/Training Program
DX: E11.9 Type 2 diabetes mellitus without complications (principal); Z12.5 Encounter for screening for malignant neoplasm of prostate
CPT/HCPCS: 36415; 82043; 82565; 82570; 83036; 84520; G0103

== ENCOUNTER → 2021-10-04 14:43 | Outpatient (CLI) | payer MEDICARE, SELFPAY ==
--- NOTE | 2021-10-04 14:49 | DI.RAD.S_ITS ---
PROCEDURE: XR ABDOMEN 1V INDICATIONS: NEPHROLTHLASIS TECHNIQUE: One view of the abdomen acquired. COMPARISON: [facility], CR, XR ABDOMEN 1V, 07/06/2020, 14:09. FINDINGS: Surgical changes and devices: None. Bowel: Bowel gas pattern is normal. Soft tissues: A prominent calcification on the right may be a unchanged right renal pelvic calcification measuring approximately 1.1 cm. There is right lower pole calcification. Visualized solid organ contours appear normal in size. Bones: No suspicious bony lesions. IMPRESSION: Right renal stones, as before, 1 of which may be in the renal pelvis. Dictated by: Eduard Bay M.D. on 10/04/2021 at 16:34 Approved by: Eduard Bya M.D. on 10/04/2021 at 16:35
== END ==
PROVIDERS: PCP Student in an Organized Health Care Education/Training Program; Referring Provider Urology; Visit Provider Urology
DX: N20.0 Calculus of kidney (principal); Z12.5 Encounter for screening for malignant neoplasm of prostate
CPT/HCPCS: 36415; 74018; 84153; G0103

== ENCOUNTER → 2021-12-13 13:26 | Outpatient (CLI) | payer MEDICARE, SELFPAY ==
[2021-12-13 14:11] LABS: Hemoglobin A1C% w Est Avg Glu 7.1 % (4.0-6.0)
[2021-12-13 14:37] LABS: BUN Creatinine Ratio 20.6 (6-22); Blood Urea Nitrogen 20 mg/dL (9-20); Calcium 9.1 mg/dL (8.4-10.2); Carbon Dioxide 30 mmol/L (22-32); Chloride 97 mmol/L (98-107); Cholesterol 93 mg/dL (140-199); Estimated Glomerular Filt Rate > 60 mL/min (>60); Glucose 124 mg/dL (80-110); HDL Cholesterol 34 mg/dL (40-60); HEMOLYSIS < 15 (0-50); LDL Cholesterol Calculated 25 mg/dL (<100); Potassium 3.8 mmol/L (3.4-5.1); Sodium 135 mmol/L (137-145); Triglycerides 170 mg/dL (35-150)
[2021-12-13 15:25] LABS: Vitamin B12 213 pg/mL (239-931)
== END ==
PROVIDERS: PCP Student in an Organized Health Care Education/Training Program; Referring Provider Student in an Organized Health Care Education/Training Program; Visit Provider Student in an Organized Health Care Education/Training Program
DX: E11.69 Type 2 diabetes mellitus with other specified complication (principal); E78.5 Hyperlipidemia, unspecified; E11.9 Type 2 diabetes mellitus without complications; I10 Essential (primary) hypertension; T38.3X5A Adverse effect of insulin and oral hypoglycemic [antidiabetic] drugs, initial encounter
CPT/HCPCS: 36415; 80048; 80061; 82607; 83036

== ENCOUNTER → 2022-01-21 14:24 | Outpatient (CLI) | payer MEDICARE, SELFPAY | PROVIDERS: PCP Student in an Organized Health Care Education/Training Program; Referring Provider Internal Medicine Rheumatology; Visit Provider Internal Medicine Rheumatology | DX: M81.0 Age-related osteoporosis without current pathological fracture (principal) | CPT/HCPCS: 77080 ==

== ENCOUNTER → 2022-04-04 08:00 | Outpatient (CLI) | payer MEDICARE, SELFPAY | PROVIDERS: PCP Student in an Organized Health Care Education/Training Program; Referring Provider Internal Medicine; Visit Provider Internal Medicine | DX: Z23 Encounter for immunization (principal) | CPT/HCPCS: 90471; 90662 ==

== ENCOUNTER → 2022-04-25 12:23 | Outpatient (CLI) | payer MEDICARE, SELFPAY ==
--- NOTE | 2022-04-25 12:24 | DI.ECHO.S_ITS ---
[facility]---------+ [facility] +---------+ : : [address] : : : [place] : : : : [id number] : : : : Phone: [phone]---------+ Echocardiogram Report + + :Name: LESLIE FLORENCE Study Date: 04/25/2022 Height: 69 in : :[facility] ReadingLocation: Weight: 160 lb : : Gender: Male BSA: 1.9 m2 : :: 1950 Age: 72 yrs BP: 101/62 mmHg: :Reason For Study: ANKYLOSING SPONDYLITIS : :Ordering Physician: BERNARDA, : :PERRY Performed By: Aurora Talley : :Referring: PERRY LEBRON : + + Interpretation Summary 1) Normal left ventricular thickness, size, wall motion, and systolic function (EF 60-65%). 2) Normal right ventricular size and function. 3) No significant valvular abnormalities. 4) Compared to the Echo done 07/24/2018, no significant change. Procedure: A two-dimensional transthoracic echocardiogram with color flow and Doppler was performed. The study quality was technically adequate. Comparison is made with the echocardiogram of 07/24/2018. The patient was in sinus bradycardia with heart rates between 59-65 bpm during the exam. Left Ventricle: There is normal left ventricular wall thickness. The left ventricle is normal in size. The ejection fraction is estimated to be 60-65%. Left ventricular systolic function appears normal without focal wall motion abnormalities. Diastolic parameters suggest a relaxation abnormality of the left ventricle, consistent with probable normal filling pressures. Right Ventricle: The right ventricle is normal in size and function. Atria: The left atrial size is normal. Right atrial size is normal. There is no Doppler evidence for an interatrial shunt. Mitral Valve: The mitral valve is normal in structure and function. There is trace mitral regurgitation. Aortic Valve: The aortic valve is trileaflet. The aortic valve opens well. There is no aortic valve stenosis. There is trace aortic regurgitation. Tricuspid Valve: The tricuspid valve is normal in structure and function. There is trace tricuspid regurgitation. Pulmonary artery pressures cannot be estimated because of the lack of a measurable TR jet velocity. Pulmonic Valve: The pulmonic valve is not well visualized. There is trace pulmonic regurgitation. Great Vessels: The aortic root is normal size. The dimensions of the ascending aorta are normal. The IVC is of normal diameter and collapses greater than 50% with a sniff. This suggests a low right atrial pressure of 3 mm Hg. Pericardium/ Pleura There is no pericardial effusion. There is no pleural effusion. MMode/2D Measurements & Calculations LVIDd: 3.6 cm LVOT diam: 2.0 cm LVIDs: 2.3 cm Ao root diam: 3.4 cm FS: 35.4 % asc Aorta Diam: 3.2 cm EPSS: 0.83 cm Ao Arch Diam (Prox Trans): 2.5 cm IVSd: 0.95 cm LVPWd: 1.2 cm LV chairez. diameter/BSA (cm/m^2): 1.9 LV sys. diameter/BSA (cm/m^2): 1.2 LA A2 area: 18.4 cm2 RA long axis: 4.6 cm LA A4 area: 17.0 cm2 RA area: 14.2 cm2 LA length (vol): 5.2 cm RA vol: 37.2 ml LA vol: 51.2 ml RA : 19.8 ml/m2 LA vol index: 27.3 ml/m2 IVC diam: 1.5 cm RVD1 (basal): 3.6 cm RVD2 (mid): 3.1 cm TAPSE: 2.0 cm Doppler Measurements & Calculations Ao V2 max: 117.8 cm/sec LVOT Max Calvin: 91.9 cm/sec Ao V2 mean: 81.1 cm/sec LV V1 max P.4 mmHg Ao max P.5 mmHg LV V1 VTI: 21.9 cm Ao mean P.0 mmHg TALIA(I,D): 2.6 cm2 Ao V2 VTI: 26.2 cm TALIA(V,D): 2.4 cm2 sev ratio: 0.84 TALIA indexed to BSA (cm^2/m^2): 1.4 MV E max calvin: 79.9 cm/sec PA V2 max: 79.6 cm/sec MV A max calvin: 84.9 cm/sec PA V2 mean: 60.5 cm/sec MV E/A: 0.94 PA mean P.6 mmHg Med Peak E' Calvin: 6.7 cm/sec PA pr(Accel): 29.3 mmHg E/E' med: 12.0 Lat Peak E' Calvin: 6.6 cm/sec E/E' lat: 12.1 E/e' average: 12.0 MV dec time: 0.23 sec SVLVOT): 67.2 ml Reading Physician:02:04 PM
[2022-04-25 14:16] LABS: Add Manual Diff / Slide Review NO; Basophils Absolute Auto 0 /uL (0-100); Basophils Percent Auto 0.6 % (0-2); Eosinophils Absolute Auto 600 /uL (0-450); Eosinophils Percent Auto 6.5 % (2-4); Hematocrit 45.8 % (41-53); Hemoglobin 15.5 g/dL (13.5-17.5); Lymphocytes Absolute Auto 2500 /uL (1100-4500); Lymphocytes Percent Auto 29.4 % (25-40); Mean Corpuscular HGB Conc 33.7 % (30-36); Mean Corpuscular Hemoglobin 30.1 PG (26-34); Mean Corpuscular Volume 89.3 fL (80-100); Monocytes Absolute Auto 600 /uL (0-900); Monocytes Percent Auto 6.6 % (3-14); Neutrophils Absolute Auto 4900 /uL (1500-7000); Neutrophils Percent Auto 56.9 % (50-75); Platelet Count 169 X10^3/uL (150-400); Red Blood Cell Count 5.13 X10^6/uL (4.5-5.9); Red Cell Distribution Width 14.9 % (11.6-14.8); White Blood Cell Count 8.6 X10^3/uL (4.5-11.0)
[2022-04-25 14:24] LABS: Hemoglobin A1C% w Est Avg Glu 7.9 % (4.0-6.0)
[2022-04-25 16:12] LABS: BUN Creatinine Ratio 25.5 (6-22); Blood Urea Nitrogen 25 mg/dL (9-20); Calcium 8.9 mg/dL (8.4-10.2); Carbon Dioxide 29 mmol/L (22-32); Chloride 95 mmol/L (98-107); Estimated Glomerular Filt Rate > 60 mL/min (>60); Glucose 154 mg/dL (80-110); HEMOLYSIS < 15 (0-50); Potassium 3.8 mmol/L (3.4-5.1); Sodium 137 mmol/L (137-145)
[2022-04-26 02:40] LABS: Cholesterol 104 mg/dL (140-199); HDL Cholesterol 35 mg/dL (40-60); LDL Cholesterol Calculated 34 mg/dL (<100); Triglycerides 174 mg/dL (35-150)
== END ==
PROVIDERS: PCP Student in an Organized Health Care Education/Training Program; Referring Provider Internal Medicine Cardiovascular Disease; Visit Provider Internal Medicine Cardiovascular Disease
DX: M45.9 Ankylosing spondylitis of unspecified sites in spine (principal); I25.10 Atherosclerotic heart disease of native coronary artery without angina pectoris; E11.9 Type 2 diabetes mellitus without complications
CPT/HCPCS: 36415; 80048; 80061; 83036; 85025; 93306

== ENCOUNTER → 2022-06-30 13:43 | Outpatient (CLI) | payer MEDICARE, SELFPAY ==
[2022-06-30 16:45] LABS: Hemoglobin A1C% w Est Avg Glu 7.6 % (4.0-6.0)
== END ==
PROVIDERS: PCP Student in an Organized Health Care Education/Training Program; Referring Provider Student in an Organized Health Care Education/Training Program; Visit Provider Student in an Organized Health Care Education/Training Program
DX: E11.9 Type 2 diabetes mellitus without complications (principal)
CPT/HCPCS: 36415; 83036

== ENCOUNTER 2023-01-02 13:43 | Inpatient (IN) | payer MEDICARE, SELFPAY ==
[2023-01-02] VITALS (12 sets, daily range): BP systolic 125–162; BP diastolic 61–77; PULSE 52–65; RESP 16–20; TEMP 35.6–36.7; O2SAT 97–100; BMI 23.6; BMI 22.9
--- NOTE | 2023-01-02 14:57 | ED.SKABFB ---
HPI - Skin/Abscess/Foreign Bdy General Chief complaint: Skin/Abscess/Foreign Body Stated complaint: Tear in rectum, Puss filled, Hx cyst Time Seen by Provider: 01/02/23 14:51 Source: patient Mode of arrival: Ambulatory History of Present Illness HPI narrative: Patient is a 72-year-old male history of ankylosing spondylitis, type 2 diabetes, hyperlipidemia presenting today with peroneal drainage. He reports that about 10 years ago he had a cyst removed that required 6 day hospital stay in rehab. There was surgical removal. Reports that over the last few days he is had significant increased pressure in the same area where he had the cyst removed it started draining suddenly but he can not get it to stop. He reports soon as it started draining the pain disappeared. He is not on any antiplatelet or anticoagulation medication. He denies absolutely any fever or chills. No problems with bowel movements. He denies any hemorrhoids. Related Data Home Medications Medication Instructions Recorded Confirmed aspirin 81 mg chewable tablet 81 mg PO DAILY 06/28/18 01/02/23 (Aspirin Childrens) acetaminophen 325 mg capsule 650 mg PO BID 01/02/23 01/02/23 (Tylenol) empagliflozin 25 mg tablet 25 mg PO DAILY 01/02/23 01/02/23 (Jardiance) metformin 850 mg tablet 850 mg PO BID 01/02/23 01/02/23 metoprolol tartrate 100 mg tablet 100 mg PO DAILY 01/02/23 01/02/23 (Lopressor) Previous Rx's Medication Instructions Recorded atorvastatin 40 mg tablet 40 mg PO BEDTIME #90 tabs 07/20/20 allopurinol 300 mg tablet 300 mg PO QDAY #90 tabs 04/29/22 Glucose: Test Strips Accu-Chek #100 ea 07/19/22 amlodipine 2.5 mg tablet 2.5 mg PO DAILY #90 tabs 12/23/22 lisinopril 20 1 tab PO DAILY #90 tabs 12/23/22 mg-hydrochlorothiazide 25 mg tablet Allergies Allergy/AdvReac Type Severity Reaction Status Date / Time oxycodone AdvReac Intermediate VOMITING Verified 07/19/22 12:51 Review of Systems Review of Systems ROS Unobtainable: All systems reviewed & are unremarkable except as noted in HPI and below Patient History Medical History Ankylosing spondylitis Diverticular disease Kidney stones Myocardial infarction (~06/06/03) Family History Brother Age: 73 Lung cancer, lower lobe Ankylosing spondylitis Father Cancer Social History household members: none Smoking Status: Current every day smoker alcohol intake: current Smoking Status: Current every day smoker tobacco type: cigars alcohol intake frequency: holidays/special occasions only Substance Use Type: does not use Exam Initial Vital Signs Initial Vital Signs: Vital Signs Temperature 97.6 F 01/02/23 13:45 Pulse Rate 61 01/02/23 13:45 Respiratory Rate 16 01/02/23 13:45 Blood Pressure 162/72 H 01/02/23 13:45 Pulse Oximetry 100 01/02/23 13:45 Oxygen Delivery Method Room Air 01/02/23 13:45 GENERAL: Very nice well-appearing 72-year-old male and in no acute distress. HEENT: Head atraumatic,EOMI, pupils reactive, face symmetric, moist mucous membranes CARDIOVASCULAR: Regular rate and rhythm without murmurs, rubs or gallops. RESPIRATORY: Breath sounds equal bilaterally, no wheezes rales or rhonchi. ABDOMEN: Soft, nontender. Normoactive bowel sounds all 4 quadrants. No guarding or rebound. RECTAL: Rectum itself has no abscess no hemorrhoid no bleeding EXTREMITIES: Normal range of motion, no clubbing or edema. Neurovascularly intact NEUROLOGICAL: Alert and oriented x4. SKIN: Perineal area there is an opening draining gross brown discharge. No erythema no fluctuation. There is 1 small area near the penis that is black and soft in nature 1cm x 2cm Course Orders Ordered: Acetaminophen (Acetaminophen 325 Mg Tablet) 650 mg PO Q6H SHANE Last Admin: 01/03/23 04:19 Dose: Not Given Documented By: SRIKANTH Calcium Carbonate (Calcium Carbonate 500 Mg Tab) 1,000 mg PO Q4HR PRN PRN Reason: Dyspepsia Dextrose (Dextrose 50 % In Water 25 Gm/50 Ml Syringe) 25 gm IV PRN PRN PRN Reason: Hypoglycemia Enoxaparin Sodium (Enoxaparin 40 Mg/0.4 Ml Syringe) 40 mg SUBCUT DAILY SHANE Sodium Chloride (Normal Saline 0.9%) 1,000 mls @ 125 mls/hr IV CONT [facility] Last Admin: 01/03/23 00:37 Dose: 125 mls/hr Documented By: SRIKANTH Ampicillin Sodium/Sulbactam (Sodium 1.5 gm/ Sodium Chloride) 100 mls @ 200 mls/hr IV Q6H [facility] Last Infusion: 01/03/23 05:09 Dose: 0 mls/hr Documented By: Admin: 01/03/23 04:20 Dose: 200 mls/hr Documented By: SRIKANTH Insulin Human Lispro (Insulin Lispro 100 Unit/Ml 3ml Vial) 0 unit SUBCUT ACHS [facility]; Protocol Last Admin: 01/02/23 21:48 Dose: Not Given Documented By: SRIKANTH Naloxone HCl (Naloxone 0.4 Mg/Ml Vial) 0.2 mg IV Q2MIN PRN PRN Reason: Opiate Reversal Ondansetron HCl (Ondansetron 4 Mg/2 Ml Inj) 4 mg IV Q8HR PRN PRN Reason: Nausea And Vomiting Discontinued Medications Acetaminophen (Acetaminophen 325 Mg Tablet) 650 mg PO Q6H [facility] Last Admin: 01/02/23 21:49 Dose: 650 mg Documented By: SRIKANTH Piperacillin Sod/Tazobactam (Sod 4.5 gm/ Sodium Chloride) 100 mls @ 200 mls/hr IV NOW ONE Stop: 01/02/23 15:56 Last Infusion: 01/02/23 17:40 Dose: 0 mls/hr Documented By: Admin: 01/02/23 16:53 Dose: 200 mls/hr Documented By: RIKA Sodium Chloride (Normal Saline 0.9%) 2,177.25 mls @ 725.75 mls/hr 30 ml/kg infuse over 3 hr (2177.25 ml) IV NOW ONE Stop: 01/02/23 18:54 Last Infusion: 01/03/23 00:33 Dose: 0 mls/hr Documented By: Infusion: 01/02/23 19:49 Dose: 0 mls/hr Documented By: Admin: 01/02/23 16:52 Dose: 725.75 mls/hr Documented By: RIKA Vancomycin HCl (Vancomycin) 1,000 mg in 200 mls @ 200 mls/hr IV NOW ONE Stop: 01/02/23 16:54 Last Infusion: 01/02/23 19:59 Dose: 0 mls/hr Documented By: Admin: 01/02/23 18:47 Dose: 200 mls/hr Documented By: MICHAEL Metronidazole (Flagyl) 500 mg in 100 mls @ 100 mls/hr IV NOW ONE Stop: 01/02/23 16:54 Last Infusion: 01/02/23 18:46 Dose: 0 mls/hr Documented By: Admin: 01/02/23 17:39 Dose: 100 mls/hr Documented By: MICHAEL Ampicillin Sodium/Sulbactam (Sodium 1.5 gm/ Sodium Chloride) 100 mls @ 200 mls/hr IV Q6H [facility] Last Infusion: 01/02/23 22:43 Dose: 0 mls/hr Documented By: Admin: 01/02/23 21:49 Dose: 200 mls/hr Documented By: SRIKANTH Vital Signs Vital signs: Vital Signs - 8 hr 01/02/23 13:45 01/02/23 14:53 01/02/23 15:33 Temperature 97.6 F 98.0 F Pulse Rate 61 65 61 Respiratory Rate 16 Blood Pressure 162/72 H 145/65 H 162/77 H Pulse Oximetry 100 98 99 Oxygen Delivery Method Room Air Room Air Room Air 01/02/23 16:52 01/02/23 17:00 01/02/23 17:00 Temperature Pulse Rate 54 L 55 L Respiratory Rate Blood Pressure 125/65 Pulse Oximetry 99 99 Oxygen Delivery Method 01/02/23 17:30 01/02/23 17:30 01/02/23 18:00 Temperature Pulse Rate 62 Respiratory Rate 16 Blood Pressure 125/61 130/63 Pulse Oximetry 98 Oxygen Delivery Method 01/02/23 18:00 01/02/23 18:30 01/02/23 18:30 Temperature Pulse Rate 56 L 63 Respiratory Rate 16 20 Blood Pressure 151/73 H Pulse Oximetry 98 97 Oxygen Delivery Method MDM - Skin/Abscess/Foreign Bdy Lab Data 01/03/23 05:15 01/03/23 05:15 Labs: Lab Results 01/02/23 01/02/23 01/02/23 Range/Units 15:24 15:24 15:24 WBC 8.6 (4.5-11.0) X10^3/uL RBC 5.58 (4.5-5.9) X10^6/uL Hgb 17.5 (13.5-17.5) g/dL Hct 51.7 (41-53) % MCV 92.6 (80-100) fL MCH 31.4 (26-34) PG MCHC 33.9 (30-36) % RDW 14.1 (11.6-14.8) % Plt Count 129 L (150-400) X10^3/uL Neut % (Auto) 66.3 (50-75) % Lymph % (Auto) 21.3 L (25-40) % [place] % (Auto) 7.6 (3-14) % Eos % (Auto) 3.9 (2-4) % Baso % (Auto) 0.9 (0-2) % Neut # (Auto) 5700 (4714-1679) /uL Lymph # (Auto) 1800 (2184-4778) /uL [place] # (Auto) 700 (0-900) /uL Eos # (Auto) 300 (0-450) /uL Baso # (Auto) 100 (0-100) /uL Sodium 137 (137-145) mmol/L Potassium 3.7 (3.4-5.1) mmol/L Chloride 98 (98-107) mmol/L Carbon Dioxide 28 (22-32) mmol/L BUN 20 (9-20) mg/dL Creatinine 0.80 (0.66-1.25) mg/dL Estimated GFR > 60 (>60) mL/min BUN/Creatinine Ratio 25.0 H (6-22) Glucose 178 H (80-110) mg/dL Lactate 4.8 H* (0.7-2.1) mmol/L Calcium 9.4 (8.4-10.2) mg/dL Total Bilirubin 2.1 H (0.2-1.3) mg/dL AST 44 (17-59) IU/L ALT 36 (<50) IU/L Alkaline Phosphatase 68 (38-126) U/L Total Protein 7.2 (6.3-8.2) g/dL Albumin 4.0 (3.5-5.0) g/dL Globulin 3.2 (1.7-4.1) g/dL Albumin/Globulin Ratio 1.3 (1.0-2.8) Procalcitonin (<0.5) ng/mL 01/02/23 01/02/23 Range/Units 15:24 17:38 WBC (4.5-11.0) X10^3/uL RBC (4.5-5.9) X10^6/uL Hgb (13.5-17.5) g/dL Hct (41-53) % MCV (80-100) fL MCH (26-34) PG MCHC (30-36) % RDW (11.6-14.8) % Plt Count (150-400) X10^3/uL Neut % (Auto) (50-75) % Lymph % (Auto) (25-40) % [place] % (Auto) (3-14) % Eos % (Auto) (2-4) % Baso % (Auto) (0-2) % Neut # (Auto) (9115-6411) /uL Lymph # (Auto) (4758-9574) /uL [place] # (Auto) (0-900) /uL Eos # (Auto) (0-450) /uL Baso # (Auto) (0-100) /uL Sodium (137-145) mmol/L Potassium (3.4-5.1) mmol/L Chloride (98-107) mmol/L Carbon Dioxide (22-32) mmol/L BUN (9-20) mg/dL Creatinine (0.66-1.25) mg/dL Estimated GFR (>60) mL/min BUN/Creatinine Ratio (6-22) Glucose (80-110) mg/dL Lactate 3.8 H (0.7-2.1) mmol/L Calcium (8.4-10.2) mg/dL Total Bilirubin (0.2-1.3) mg/dL AST (17-59) IU/L ALT (<50) IU/L Alkaline Phosphatase (38-126) U/L Total Protein (6.3-8.2) g/dL Albumin (3.5-5.0) g/dL Globulin (1.7-4.1) g/dL Albumin/Globulin Ratio (1.0-2.8) Procalcitonin 0.07 (<0.5) ng/mL Imaging Data CT scan - abdomen/pelvis: Radiologist's Impression: PROCEDURE:? CT ABDOMEN PELVIS W CON ? INDICATIONS:? Peroneal abscess/necrotizing fasciitis/fistula ? TECHNIQUE:? After the administration of intravenous contrast, 5 mm thick sections acquired from the diaphragms to the symphysis.? 2.5 mm thick coronal and sagittal reformats were acquired.? Optional 10-minute delayed imaging may be performed from the kidneys to the bladder.? For radiation dose reduction, the following was used:? automated exposure control, adjustment of mA and/or kV according to patient size.? ? COMPARISON:? CT pelvis 11/01/2014. ? FINDINGS:? Image quality:? Excellent.? ? ABDOMEN:? Lung bases:? Dependent atelectasis.? Heart size is normal.? No pericardial effusion.? No basal pleural effusions or pneumothorax.? ? Solid organs:? Liver is normal in size and enhancement.? Cholelithiasis.? Biliary system is non-dilated.? Pancreas enhances normally, without transection.? Spleen is normal in size and enhancement.? Fat containing 1.0 cm left adrenal nodule (07/06).? Kidneys symmetrically enhance.? There is a nonobstructing 10 mm and 6 mm stone in the inferior pole of the right kidney.? No hydronephrosis bilaterally.? No hydronephrosis.? Redemonstration of ? Peritoneum and bowel:? No free fluid or air.? No abnormal bowel wall thickening.? No evidence of bowel obstruction.? No evidence of fluid collection the perineal region.? No soft tissue gas ? Nodes and vessels:? No retroperitoneal or mesenteric adenopathy.? Aorta and inferior vena cava are normal in size and enhancement.? Mild aorto bi iliac atherosclerotic calcifications ? Miscellaneous:? Small fat containing periumbilical ventral hernia. ? ? PELVIS:? ? Genitourinary:? Bladder wall thickness is normal.? Prostatomegaly. ? Miscellaneous:? No inguinal hernias or adenopathy.? ? Bones:? No acute or suspicious osseous abnormality.? Moderate degenerative change of the spine. ? ? IMPRESSION:? 1. No CT evidence of perineal abscess, fistula or subcutaneous gas in the perineal region. 2. ? Cholelithiasis.? 3. Nonobstructing 6 mm and 11 mm calculi in the right inferior pole.? No hydronephrosis.? ? ? Dictated by: Sayra Cain M.D. on 01/02/2023 at 16:44 ? ? MDM Narrative Medical decision making narrative: Patient is a 72-year-old male history of diabetes hypertension presenting today with drainage of the peroneal area. He has gross bloody drainage from an area without any obvious abscess. Although he sounds as though he had some swelling and abscess that has now draining. There is 1 area that is slightly black possibly necrotic but measures at about 1 cm x 2 cm. Concern for possibly necrotizing fasciitis, Jemal's gangrene, fistula. CT really does not show any abnormality. There is no leukocytosis electrolytes are stable he is hemodynamically stable without hypotension tachycardia or fever however he has significant lactic acidosis with lactate of 4.8 that improved to 3.5 with IV fluids. He is given antibiotics Zosyn Flagyl and vancomycin. Dr. Ordonez updated at this time no need for surgery. Dr Grace accepts patient. Discharge Plan Departure Patient Disposition: Admitted as Observation Clinical Impression: Cellulitis Qualifiers: Site of cellulitis: buttock Qualified Code(s): L03.317 - Cellulitis of buttock Admit Date/Time: 01/02/23 19:45 Admit Provider: Jet Grace
[2023-01-02 15:36] LABS: Add Manual Diff / Slide Review NO; Basophils Absolute Auto 100 /uL (0-100); Basophils Percent Auto 0.9 % (0-2); Eosinophils Absolute Auto 300 /uL (0-450); Eosinophils Percent Auto 3.9 % (2-4); Hematocrit 51.7 % (41-53); Hemoglobin 17.5 g/dL (13.5-17.5); Lymphocytes Absolute Auto 1800 /uL (1100-4500); Lymphocytes Percent Auto 21.3 % (25-40); Mean Corpuscular HGB Conc 33.9 % (30-36); Mean Corpuscular Hemoglobin 31.4 PG (26-34); Mean Corpuscular Volume 92.6 fL (80-100); Monocytes Absolute Auto 700 /uL (0-900); Monocytes Percent Auto 7.6 % (3-14); Neutrophils Absolute Auto 5700 /uL (1500-7000); Neutrophils Percent Auto 66.3 % (50-75); Platelet Count 129 X10^3/uL (150-400); Red Blood Cell Count 5.58 X10^6/uL (4.5-5.9); Red Cell Distribution Width 14.1 % (11.6-14.8); White Blood Cell Count 8.6 X10^3/uL (4.5-11.0)
[2023-01-02 15:48] LABS: Alanine Aminotransferase 36 IU/L (<50); Albumin Globulin Ratio 1.3 (1.0-2.8); Alkaline Phosphatase 68 U/L (38-126); Aspartate Aminotransferase 44 IU/L (17-59); Bilirubin Total 2.1 mg/dL (0.2-1.3); Blood Urea Nitrogen 20 mg/dL (9-20); Calcium 9.4 mg/dL (8.4-10.2); Carbon Dioxide 28 mmol/L (22-32); Chloride 98 mmol/L (98-107); Estimated Glomerular Filt Rate > 60 mL/min (>60); Globulin 3.2 g/dL (1.7-4.1); Glucose 178 mg/dL (80-110); HEMOLYSIS 21 (0-50); Potassium 3.7 mmol/L (3.4-5.1); Sodium 137 mmol/L (137-145); Total Protein 7.2 g/dL (6.3-8.2)
[2023-01-02 15:50] LABS: Lactate (Lactic Acid) 4.8 mmol/L (0.7-2.1)
--- NOTE | 2023-01-02 16:06 | DI.CT.S_ITS ---
PROCEDURE: CT ABDOMEN PELVIS W CON INDICATIONS: Peroneal abscess/necrotizing fasciitis/fistula TECHNIQUE: After the administration of intravenous contrast, 5 mm thick sections acquired from the diaphragms to the symphysis. 2.5 mm thick coronal and sagittal reformats were acquired. Optional 10-minute delayed imaging may be performed from the kidneys to the bladder. For radiation dose reduction, the following was used: automated exposure control, adjustment of mA and/or kV according to patient size. COMPARISON: CT pelvis 11/01/2014. FINDINGS: Image quality: Excellent. ABDOMEN: Lung bases: Dependent atelectasis. Heart size is normal. No pericardial effusion. No basal pleural effusions or pneumothorax. Solid organs: Liver is normal in size and enhancement. Cholelithiasis. Biliary system is non-dilated. Pancreas enhances normally, without transection. Spleen is normal in size and enhancement. Fat containing 1.0 cm left adrenal nodule (2/22). Kidneys symmetrically enhance. There is a nonobstructing 10 mm and 6 mm stone in the inferior pole of the right kidney. No hydronephrosis bilaterally. No hydronephrosis. Redemonstration of Peritoneum and bowel: No free fluid or air. No abnormal bowel wall thickening. No evidence of bowel obstruction. No evidence of fluid collection the perineal region. No soft tissue gas Nodes and vessels: No retroperitoneal or mesenteric adenopathy. Aorta and inferior vena cava are normal in size and enhancement. Mild aorto bi iliac atherosclerotic calcifications Miscellaneous: Small fat containing periumbilical ventral hernia. PELVIS: Genitourinary: Bladder wall thickness is normal. Prostatomegaly. Miscellaneous: No inguinal hernias or adenopathy. Bones: No acute or suspicious osseous abnormality. Moderate degenerative change of the spine. IMPRESSION: 1. No CT evidence of perineal abscess, fistula or subcutaneous gas in the perineal region. 2. Cholelithiasis. 3. Nonobstructing 6 mm and 11 mm calculi in the right inferior pole. No hydronephrosis. Dictated by: Sayra Cain M.D. on 01/02/2023 at 16:44 Approved by: Sayra Cain M.D. on 01/02/2023 at 16:56
[2023-01-02] MEDS: SODIUM CHLORIDE 0.9% 2,177.25 ML 725.75 ML IV (16:52)
[2023-01-02] MEDS: PIPERACILLIN/TAZO 4.5 GM in SODIUM CHLORIDE 0.9% 100 ML IV (16:53)
[2023-01-02 17:32] LABS: Reflexed Lactate in 2 Hours Y
[2023-01-02] MEDS: metroNIDAZOLE 500 MG/100 ML PIGGYBACK 100 MG IV (17:39)
[2023-01-02 17:56] LABS: Lactate 2HR (Lactic Acid Rflx) 3.8 mmol/L (0.7-2.1)
[2023-01-02] MEDS: VANCOMYCIN 1,000 MG/200 ML PIGGYBACK 200 MG IV (18:47)
[2023-01-02 19:56] LABS: Procalcitonin 0.07 ng/mL (<0.5)
--- NOTE | 2023-01-02 21:30 | PM.HP.1 ---
History of Present Illness History of Present Illness Date Patient Seen: 01/02/23 Time Patient Seen: 21:30 Chief complaint: Tear in rectum, Puss filled, Hx cyst Narrative: The pt reports having a tear around the rectum/anus about a week ago and has noticed an increasing redness, firmness and swelling since then. Yesterday the pt tried timothy warm compressed and tried expressing pus from the area without results. Today, he came to the ER for evaluation of this area. He was noted to have a large area of induration in the perineal area between the anus and scrotum. CT scan done in the ER only showing swelling of the skin around that area. There has been no fevers, chills, trouble with urination or defecation, in fact his last BM was in the ER tonight. There has been no trauma in the area prior [facility] Medical History Ankylosing spondylitis Diverticular disease Kidney stones Myocardial infarction (~06/06/03) Family History Brother Age: 73 Lung cancer, lower lobe Ankylosing spondylitis Father Cancer Social History household members: none Smoking Status: Current every day smoker alcohol intake: current Meds Home Medications and Allergies Home Medications Medication Instructions Recorded Confirmed Type aspirin 81 mg chewable tablet 81 mg PO DAILY 06/28/18 01/02/23 History (Aspirin Childrens) atorvastatin 40 mg tablet 40 mg PO BEDTIME #90 tabs 07/20/20 01/02/23 Rx allopurinol 300 mg tablet 300 mg PO QDAY #90 tabs 04/29/22 01/02/23 Rx Glucose: Test Strips Accu-Chek #100 ea 07/19/22 07/19/22 Rx amlodipine 2.5 mg tablet 2.5 mg PO DAILY #90 tabs 12/23/22 01/02/23 Rx lisinopril 20 1 tab PO DAILY #90 tabs 12/23/22 01/02/23 Rx mg-hydrochlorothiazide 25 mg tablet acetaminophen 325 mg capsule 650 mg PO BID 01/02/23 01/02/23 History (Tylenol) empagliflozin 25 mg tablet 25 mg PO DAILY 01/02/23 01/02/23 History (Jardiance) metformin 850 mg tablet 850 mg PO BID 01/02/23 01/02/23 History metoprolol tartrate 100 mg tablet 100 mg PO DAILY 01/02/23 01/02/23 History (Lopressor) Allergies Allergy/AdvReac Type Severity Reaction Status Date / Time oxycodone AdvReac Intermediate VOMITING Verified 07/19/22 12:51 Review of Systems Review of Systems Narrative: all systems were reviewed and are negative except what is listed in the HPI Exam Vital Signs (past 8 hours): - 01/02/23 13:45 01/02/23 14:53 01/02/23 15:33 Temperature 97.6 F 98.0 F Pulse Rate 61 65 61 Respiratory Rate 16 Blood Pressure 162/72 H 145/65 H 162/77 H Pulse Oximetry 100 98 99 Oxygen Delivery Method Room Air Room Air Room Air Oxygen Flow Rate 01/02/23 16:52 01/02/23 17:00 01/02/23 17:00 Temperature Pulse Rate 54 L 55 L Respiratory Rate Blood Pressure 125/65 Pulse Oximetry 99 99 Oxygen Delivery Method Oxygen Flow Rate 01/02/23 17:30 01/02/23 17:30 01/02/23 18:00 Temperature Pulse Rate 62 Respiratory Rate 16 Blood Pressure 125/61 130/63 Pulse Oximetry 98 Oxygen Delivery Method Oxygen Flow Rate 01/02/23 18:00 01/02/23 18:30 01/02/23 18:30 Temperature Pulse Rate 56 L 63 Respiratory Rate 16 20 Blood Pressure 151/73 H Pulse Oximetry 98 97 Oxygen Delivery Method Oxygen Flow Rate 01/02/23 19:00 01/02/23 19:00 01/02/23 19:30 Temperature Pulse Rate 52 L Respiratory Rate 16 Blood Pressure 148/70 H 145/73 H Pulse Oximetry 99 Oxygen Delivery Method Oxygen Flow Rate 01/02/23 19:30 01/02/23 20:00 01/02/23 20:00 Temperature Pulse Rate 58 L 61 Respiratory Rate Blood Pressure 140/66 Pulse Oximetry 97 97 Oxygen Delivery Method Oxygen Flow Rate 01/02/23 20:59 01/02/23 21:14 Temperature 96.0 F L Pulse Rate 53 L Respiratory Rate 20 Blood Pressure 135/69 Pulse Oximetry 98 Oxygen Delivery Method Room Air Oxygen Flow Rate 0 Oxygen Delivery Method Room Air Oxygen Flow Rate 0 Const General: cooperative, healthy appearing and comfortable Resp Auscultation: clear to auscultation bilaterally Cardio Heart Sounds: S1 normal, S2 normal and no murmurs Other: Pt defered the exam at this time, Neuro General: patient alert, patient awake and patient oriented x3 Objective Imaging CT scan - abdomen: My impression: No abnormalities noted, Labs 01/02/23 15:24 01/02/23 15:24 Labs: Laboratory Results - last 24 hr 01/02/23 01/02/23 01/02/23 15:24 15:24 15:24 WBC 8.6 RBC 5.58 Hgb 17.5 Hct 51.7 MCV 92.6 MCH 31.4 MCHC 33.9 RDW 14.1 Plt Count 129 L Neut % (Auto) 66.3 Lymph % (Auto) 21.3 L [place] % (Auto) 7.6 Eos % (Auto) 3.9 Baso % (Auto) 0.9 Neut # (Auto) 5700 Lymph # (Auto) 1800 [place] # (Auto) 700 Eos # (Auto) 300 Baso # (Auto) 100 Sodium 137 Potassium 3.7 Chloride 98 Carbon Dioxide 28 BUN 20 Creatinine 0.80 Estimated GFR > 60 BUN/Creatinine Ratio 25.0 H Glucose 178 H Lactate 4.8 H* Calcium 9.4 Total Bilirubin 2.1 H AST 44 ALT 36 Alkaline Phosphatase 68 Total Protein 7.2 Albumin 4.0 Globulin 3.2 Albumin/Globulin Ratio 1.3 Procalcitonin 01/02/23 01/02/23 15:24 17:38 WBC RBC Hgb Hct MCV MCH MCHC RDW Plt Count Neut % (Auto) Lymph % (Auto) [place] % (Auto) Eos % (Auto) Baso % (Auto) Neut # (Auto) Lymph # (Auto) Teller # (Auto) Eos # (Auto) Baso # (Auto) Sodium Potassium Chloride Carbon Dioxide BUN Creatinine Estimated GFR BUN/Creatinine Ratio Glucose Lactate 3.8 H Calcium Total Bilirubin AST ALT Alkaline Phosphatase Total Protein Albumin Globulin Albumin/Globulin Ratio Procalcitonin 0.07 Assessment & Plan Assessment and plan (1) Cellulitis: Qualifiers: Site of cellulitis: buttock Qualified Code(s): L03.317 - Cellulitis of buttock Status: Acute (2) Ankylosing spondylitis: Status: Chronic (3) Gouty arthritis: Status: Chronic (4) Type 2 diabetes mellitus: Qualifiers: Diabetes mellitus mcfp insulin use: without supervisor intermediates use Diabetes mellitus complication status: without complication Qualified Code(s): E11.9 - Type 2 diabetes mellitus without complications Status: Chronic (5) Essential hypertension: Status: Chronic Plan The pt was given zosyn, flagyl, vanco in the ER. Labs reviewed showing normal WBC, and CT normal. Will start the pt on Ancef for broad spectrum coverage. Repeat labs in am. Pain meds ordered prn, Quality VTE Deep Vein Thrombosis/Pulmonary Embolism Present on Admission: No
[2023-01-02] MEDS: AMPICILLIN/SULBACTAM 1.5 GM 1.5 GM in SODIUM CHLORIDE 0.9% 100 ML IV (21:49)
[2023-01-02] MEDS: ACETAMINOPHEN 325 MG TABLET 650 MG PO (21:49)
[2023-01-03] MEDS: SODIUM CHLORIDE 0.9% 1,000 ML 125 ML IV ×2 (00:37→09:23)
[2023-01-03 04:00] VITALS: BP 102/55; PULSE 59; RESP 18; TEMP 36; O2SAT 98
[2023-01-03] MEDS: AMPICILLIN/SULBACTAM 1.5 GM 1.5 GM in SODIUM CHLORIDE 0.9% 100 ML IV ×2 (04:20→10:14)
[2023-01-03 06:07] LABS: Add Manual Diff / Slide Review NO; Basophils Absolute Auto 0 /uL (0-100); Basophils Percent Auto 0.7 % (0-2); Eosinophils Absolute Auto 300 /uL (0-450); Eosinophils Percent Auto 5.7 % (2-4); Hematocrit 42.4 % (41-53); Hemoglobin 14.5 g/dL (13.5-17.5); Lymphocytes Absolute Auto 1500 /uL (1100-4500); Lymphocytes Percent Auto 25.9 % (25-40); Mean Corpuscular HGB Conc 34.3 % (30-36); Mean Corpuscular Hemoglobin 31.2 PG (26-34); Mean Corpuscular Volume 91.2 fL (80-100); Monocytes Absolute Auto 400 /uL (0-900); Monocytes Percent Auto 7.4 % (3-14); Neutrophils Absolute Auto 3500 /uL (1500-7000); Neutrophils Percent Auto 60.3 % (50-75); Platelet Count 100 X10^3/uL (150-400); Red Blood Cell Count 4.65 X10^6/uL (4.5-5.9); Red Cell Distribution Width 14.7 % (11.6-14.8); White Blood Cell Count 5.7 X10^3/uL (4.5-11.0)
[2023-01-03 06:16] LABS: BUN Creatinine Ratio 17.2 (6-22); Blood Urea Nitrogen 16 mg/dL (9-20); Calcium 8.2 mg/dL (8.4-10.2); Carbon Dioxide 27 mmol/L (22-32); Chloride 104 mmol/L (98-107); Estimated Glomerular Filt Rate > 60 mL/min (>60); Glucose 232 mg/dL (80-110); HEMOLYSIS < 15 (0-50); Potassium 3.3 mmol/L (3.4-5.1); Sodium 137 mmol/L (137-145)
[2023-01-03] MEDS: INSULIN LISPRO 100 UNIT/ML 3ML VIAL SUBCUT (08:20)
[2023-01-03 09:47] VITALS: BP 117/56; PULSE 69; RESP 18; TEMP 36.3; O2SAT 98
--- NOTE | 2023-01-03 10:06 | CM.DANOTE ---
DCP: Case received, EMR reviewed and met with patient. Introduced self and role. Was able to obtain information regarding patient's baseline activity status prior to hospitalization. DCP assessment completed with information currently available. Patient was admitted yesterday evening to the care of the hospitalist team. PCP: Dr. Snyder. Payer: confirmed: Medicare/[employer]. Patient came to the hospital via private vehicle secondary to increased pressure in his perineal area, for patient had a cyst removed in this area about 10 years ago. Patient has history of ankylosing spondylitis, [place]. Notes inficate that patient reported having a tear around his anus/rectum about a week ago with increased redness. Patient then attempted to apply warm compresses to the area, to extract the drainage. Patient was admitted for cellulitis, to the area, he is getting IV ABO, initial notes indicated that surgery was not indicated, but now is noted that patient will be getting a surgical consult today, as hospitalist had also mentioned. Met with patient in his room. He is pleasant, alert and oriented. Patient remembers this [place] [employer] when she was his home health nurse several years ago. At that time, home health had been seeing him for an open area in his perineal area, and was being packed. Confirmed that patient resides alone here in [place], and is independent at his baseline. Patient used to be a [employer] rep. years ago. He uses a cane if needed, and drives. Patient remembers the other home health nurses that had seen him as well. P: DCP to continue to follow closely. Will see how his surgical consult goes. It is uncertain if he would qualify for any type of home health services, most likely will not be homebound, but may be able to go to the wound clinic. Home is the plan when stable, is also hopeful that he can DC on oral ABO. Susannah Diaz RN/Diffuser Operator Discharge Planning/Care Management CM Discharge Assessment Start: 01/03/23 10:03 Freq: Status: Active Protocol: Document 01/03/23 10:03 (Rec: 01/03/23 10:06 [id number]) Discharge Planning Assessment Assigned Sprinkler Irrigation Equipment Mechanic Susannah Diaz RN/Diffuser Operator Advance Directives? Yes Advance Directives on File No History Provided By Patient,Medical Record Prior Living Arrangements House Household Members none Type of transporation used prior to Drives own vehicle admit Independent with ADL's Yes Is patient alert and oriented? Yes Barriers to Discharge No Discharge Plan Home Transportation Arrangement Self, most likely Referrals Initiated Other Additional Comment Patient most likely will not qualify for home health, may not be home bound. Whiteboard Updated in Patient Room with Yes name and ext. # of Sprinkler Irrigation Equipment Mechanic Review Status In Process Next Review Type Continued Stay Review
[2023-01-03] MEDS: ACETAMINOPHEN 325 MG TABLET 650 MG PO (10:13)
[2023-01-03] MEDS: POTASSIUM CHLORIDE 20 MEQ TAB 40 MEQ PO (10:13)
--- NOTE | 2023-01-03 11:53 | PM.DS.1 ---
History of Present Illness History of Present Illness Date Patient Seen: 01/03/23 Time Patient Seen: 11:53 Chief complaint: Tear in rectum, Puss filled, Hx cyst Narrative: The pt reports having a tear around the rectum/anus about a week ago and has noticed an increasing redness, firmness and swelling since then. Yesterday the pt tried timothy warm compressed and tried expressing pus from the area without results. Today, he came to the ER for evaluation of this area. He was noted to have a large area of induration in the perineal area between the anus and scrotum. CT scan done in the ER only showing swelling of the skin around that area. There has been no fevers, chills, trouble with urination or defecation, in fact his last BM was in the ER tonight. There has been no trauma in the area prior Discharge Providers Provider Date of admission: 01/02/23 19:45 Discharge Date: 01/03/23 Primary care physician: Faisal Neely MD Consults: 01/02/23 19:35 Consult to Physician Routine Comment: Consulting Provider: Estela Maldonado Reason for consultation: perineal abscess Has provider been notified: Yes 01/02/23 21:14 Consult to Pastoral Services Routine Comment: if he wants to come and visit me 01/03/23 07:04 Consult to General Surgery Routine Comment: Consulting Provider: Joanie Ordonez Reason for consultation: perineal abscess Discharge provider: Tanner Glynn DO Summary Hospital Course Discharge Diagnosis: (1) Perineal cellulitis, furuncle, and cyst improved (2) Ankylosing spondylitis: ? ? ? (3) Gouty arthritis: (4) Type 2 diabetes mellitus: (5) Essential hypertension: Hospital Course: This is a 72 year old male with PMH of HTN, DM2, ankylosing spondylitis and recent perineal cyst who presented with perineal drainage. There was concern for possible necrotizing fasciitis with elevated lactate initially, however patient had minimal pain and lactate resolved quickly. He was admitted overnight, and the following morning a small amount of drainage was able to be expressed from a furucle in his perineum (see exam below). His cyst did not appear infected and there was no corresponding cellulitis on my examination with improvement noted by the patient. He refused further oral antibiotics at discharge, but did agree to continue treatment with a topical antibiotic over the furuncle for the next few days. General surgery was consulted by the ER, but deemed not necessary after my examination of the perineum. Recommend continued outpatient follow up for his perineal cyst with primary care provider. Time Spent with Patient Time spent: Less than 30 minutes Exam Vital Signs (past 8 hours): - 01/03/23 04:00 01/03/23 09:47 Temperature 96.8 F L 97.4 F L Pulse Rate 59 L 69 Respiratory Rate 18 18 Blood Pressure 102/55 L 117/56 L Pulse Oximetry 98 98 Oxygen Flow Rate 0 0 Oxygen Delivery Method Room Air Oxygen Flow Rate 0 Narrative Exam Narrative: Gen: no acute distress CV: RRR Pulm: CTA b/l Abd; S NT ND Anal: no anal fissures, no visible hemorrhoids. small furuncle just anterior to the anus, approx 1.5 cm from the anus on the left side, with scant purulent drainage, expressed until no further drainage (<0.5 cc total with pierson removed). Chronic, noninfected appearing cyst another 1.5 cm anterior without induration or purulence. (see scanned photo in chart from nursing documentation). No erythema or tenderness in the perineum during examination. Objective Labs 01/03/23 05:15 01/03/23 05:15 Labs: Laboratory Results - last 24 hr 01/02/23 01/02/23 01/02/23 15:24 15:24 15:24 WBC 8.6 RBC 5.58 Hgb 17.5 Hct 51.7 MCV 92.6 MCH 31.4 MCHC 33.9 RDW 14.1 Plt Count 129 L Neut % (Auto) 66.3 Lymph % (Auto) 21.3 L [place] % (Auto) 7.6 Eos % (Auto) 3.9 Baso % (Auto) 0.9 Neut # (Auto) 5700 Lymph # (Auto) 1800 [place] # (Auto) 700 Eos # (Auto) 300 Baso # (Auto) 100 Sodium 137 Potassium 3.7 Chloride 98 Carbon Dioxide 28 BUN 20 Creatinine 0.80 Estimated GFR > 60 BUN/Creatinine Ratio 25.0 H Glucose 178 H Lactate 4.8 H* Calcium 9.4 Total Bilirubin 2.1 H AST 44 ALT 36 Alkaline Phosphatase 68 Total Protein 7.2 Albumin 4.0 Globulin 3.2 Albumin/Globulin Ratio 1.3 Procalcitonin 01/02/23 01/02/23 01/03/23 15:24 17:38 00:20 WBC RBC Hgb Hct MCV MCH MCHC RDW Plt Count Neut % (Auto) Lymph % (Auto) [place] % (Auto) Eos % (Auto) Baso % (Auto) Neut # (Auto) Lymph # (Auto) [place] # (Auto) Eos # (Auto) Baso # (Auto) Sodium Potassium Chloride Carbon Dioxide BUN Creatinine Estimated GFR BUN/Creatinine Ratio Glucose Lactate 3.8 H 2.0 Calcium Total Bilirubin AST ALT Alkaline Phosphatase Total Protein Albumin Globulin Albumin/Globulin Ratio Procalcitonin 0.07 01/03/23 01/03/23 05:15 05:15 WBC 5.7 RBC 4.65 Hgb 14.5 Hct 42.4 MCV 91.2 MCH 31.2 MCHC 34.3 RDW 14.7 Plt Count 100 L Neut % (Auto) 60.3 Lymph % (Auto) 25.9 [place] % (Auto) 7.4 Eos % (Auto) 5.7 H Baso % (Auto) 0.7 Neut # (Auto) 3500 Lymph # (Auto) 1500 [place] # (Auto) 400 Eos # (Auto) 300 Baso # (Auto) 0 Sodium 137 Potassium 3.3 L Chloride 104 Carbon Dioxide 27 BUN 16 Creatinine 0.93 Estimated GFR > 60 BUN/Creatinine Ratio 17.2 Glucose 232 H Lactate Calcium 8.2 L Total Bilirubin AST ALT Alkaline Phosphatase Total Protein Albumin Globulin Albumin/Globulin Ratio Procalcitonin [facility] Medical History Ankylosing spondylitis Diverticular disease Kidney stones Myocardial infarction (~06/06/03) Family History Brother Age: 73 Lung cancer, lower lobe Ankylosing spondylitis Father Cancer Social History household members: none Smoking Status: Current every day smoker alcohol intake: current Discharge Plan Discharge Plan Patient Disposition: Home Provider Discharge Comment: You were admitted to the hospital with concern for a possible abscess, after antibiotics there is minimal drainage from an infected hair follicle. Recommend mupirocin or triple antibiotic cream over the area 2-3x daily for a couple of days. Please follow up with primary care provider if no improvement in a week or so. I would recommend pcp follow up for continued following of the cyst that is there, which does not appear infected. Discharge orders & Medications Prescriptions: Continued atorvastatin 40 mg tablet 40 mg PO BEDTIME Qty: 90 3RF allopurinol 300 mg tablet 300 mg PO QDAY Qty: 90 2RF amlodipine 2.5 mg tablet 2.5 mg PO DAILY Qty: 90 3RF lisinopril-hydrochlorothiazide 20-25 mg tablet 1 tab PO DAILY Qty: 90 3RF (DME) Glucose: Test Strips Accu-Chek 0 .Route .MEDSUPPLY Qty: 100 11RF Dose Instruction: As directed Rx Instructions: CHECK BLOOD SUGAR DAILY aspirin [Aspirin Childrens] 81 mg tablet,chewable 81 mg PO DAILY acetaminophen [Tylenol] 325 mg Capsule 650 mg PO BID Jardiance 25 mg tablet 25 mg PO DAILY metoprolol tartrate [Lopressor] 100 mg tablet 100 mg PO DAILY metformin 850 mg tablet 850 mg PO BID Follow up/Referrals: Faisal Neely MD [Primary Care Provider] - Diet/Activity/Treatments Diet: Diet as Tolerated, Regular and Carb-consistent/Diabetic Activity: As tolerated no restrictions. Visit Report/Discharge Packet Stand Alone Forms: Patient Portal/API, Stroke Signs & Symptoms Discharge Data Primary Care Provider: Faisal Neely Quality VTE Deep Vein Thrombosis/Pulmonary Embolism Present on Admission: No
== END 2023-01-03 17:46 | disposition home or self-care (01) | DRG 603 ==
LOC: ED 19:38 → AC 19:52
PROVIDERS: Admitting Provider Internal Medicine; Emergency Provider Emergency Medicine; PCP Student in an Organized Health Care Education/Training Program; Visit Provider Internal Medicine
DX: L03.315 Cellulitis of perineum (principal); M45.9 Ankylosing spondylitis of unspecified sites in spine; L02.225 Furuncle of perineum; E11.9 Type 2 diabetes mellitus without complications; M10.9 Gout, unspecified; Z79.84 Long term (current) use of oral hypoglycemic drugs
CPT/HCPCS: 36415; 74177; 80048; 80053; 82962; 83605; 84145; 85025; 87040; 87070; 87075; 87077; 87147; 87205; 96365; 96367; 99284; J0295; J1815; J2543; Q9967

== ENCOUNTER → 2023-01-17 13:58 | Outpatient (CLI) | payer MEDICARE, SELFPAY ==
[2023-01-02 19:54] VITALS: BMI 22.9
[2023-01-17 14:45] LABS: Hemoglobin A1C% w Est Avg Glu 8.3 % (4.0-6.0)
[2023-01-17 15:04] LABS: BUN Creatinine Ratio 23.6 (6-22); Blood Urea Nitrogen 21 mg/dL (9-20); Calcium 9.3 mg/dL (8.4-10.2); Carbon Dioxide 24 mmol/L (22-32); Chloride 99 mmol/L (98-107); Estimated Glomerular Filt Rate > 60 mL/min (>60); Glucose 203 mg/dL (80-110); HEMOLYSIS 19 (0-50); Potassium 3.9 mmol/L (3.4-5.1); Sodium 136 mmol/L (137-145); Uric Acid 3.8 mg/dL (3.5-8.5)
[2023-01-17 15:43] LABS: Hep C Virus Ab w/Reflex Quant NEGATIVE s/c (NEGATIVE)
[2023-01-17 15:45] LABS: Vitamin B12 279 pg/mL (239-931)
[2023-01-17 15:47] LABS: Creatinine Urine Random 59.6 mg/dL
[2023-01-17 15:53] LABS: Microalbumi Creatinin Ratio Ur 15.1 ug/mg CR (<30); Microalbumin Urine Random 0.9 mg/dL (0-1.6)
== END ==
PROVIDERS: PCP Student in an Organized Health Care Education/Training Program; Referring Provider Pediatrics; Visit Provider Pediatrics
DX: E11.9 Type 2 diabetes mellitus without complications (principal)
CPT/HCPCS: 36415; 80048; 82043; 82570; 82607; 83036; 84550; 86803

== ENCOUNTER → 2023-04-13 13:23 | Outpatient (CLI) | payer MEDICARE, SELFPAY ==
[2023-01-02 19:54] VITALS: BMI 22.9
--- NOTE | 2023-04-13 13:33 | DI.RAD.S_ITS ---
PROCEDURE: XR ABDOMEN 1V INDICATIONS: KIDNEY STONE TECHNIQUE: One view of the abdomen acquired. COMPARISON: [facility], CT, CT ABDOMEN PELVIS W CON, 01/02/2023, 16:15. [facility], CR, XR ABDOMEN 1V, 10/04/2021, 15:05. FINDINGS: Surgical changes and devices: None. Bowel: Bowel gas pattern is normal. Soft tissues: No suspicious abdominal calcifications. Visualized solid organ contours appear normal in size. 10 mm stone in the right renal pelvis. 3 mm nonobstructing stone in the right inferior pole. These are unchanged compared to prior CT on 01/02/2023. Bones: Ankylosing spondylitis of the lumbar spine. IMPRESSION: 1. 10 mm stone in the right renal pelvis. 2. 3 mm stone in the right inferior pole. 3. No acute abnormality. Dictated by: Brady Huff M.D. on 04/13/2023 at 15:49 Approved by: Brady Huff M.D. on 04/13/2023 at 15:52
[2023-04-13 16:24] LABS: Prostate Specific Antigen Scrn 2.91 ng/mL (0.1-4.0)
== END ==
PROVIDERS: PCP Family Medicine; Referring Provider Urology; Visit Provider Urology
DX: Z12.5 Encounter for screening for malignant neoplasm of prostate (principal); N20.0 Calculus of kidney
CPT/HCPCS: 36415; 74018; G0103

== ENCOUNTER 2023-09-03 13:30 | Emergency (ER) | payer MEDICARE, SELFPAY ==
[2023-01-02 19:54] VITALS: BMI 22.9
[2023-09-03] VITALS (14 sets, daily range): BP systolic 107–126; BP diastolic 59–65; PULSE 51–71; RESP 18; TEMP 36.9; O2SAT 78–100; BMI 22.8
--- NOTE | 2023-09-03 14:29 | ED_ITS ---
HPI - Skin/Abscess/Foreign Bdy <Yahir Marie MD - Last Filed: 09/13/23 07:38> General Chief complaint: Wound/Laceration Stated complaint: cyst between anus and scrotum Time Seen by Provider: 09/03/23 14:04 Source: patient Mode of arrival: Ambulatory Limitations: no limitations History of Present Illness HPI narrative: Patient here complains of pain swelling to the skin between the anus in the scrotal area. Right of midline. Patient has had multiple procedures at this site for cutaneous abscess. Has seen General surgery for this complaint as well. This episode started about a week ago. Has not been on any recent antibiotics. Patient admitted last year for IV antibiotics. I did review the chart and due to the lactic acid being elevated patient was kept overnight for IV antibiotics. Never had a fever. No leukocytosis. This was in December of 2022. Patient denies any fever or chills. Patient states last Monday he felt this area bleed again. Within 2 days it stopped but then started pain and swelling. On exam there is a small blood blister/vesicle at the perineum. There is surrounding induration and tenderness no crepitus. No pain out of portion exam. Not Jemal's Related Data Home Medications Medication Instructions Recorded Confirmed aspirin 81 mg chewable tablet 81 mg PO DAILY 06/28/18 09/12/23 (Aspirin Childrens) acetaminophen 325 mg capsule 650 mg PO BID 01/02/23 09/12/23 (Tylenol) Previous Rx's Medication Instructions Recorded atorvastatin 40 mg tablet 40 mg PO BEDTIME #90 tabs 07/20/20 Glucose: Test Strips Accu-Chek #100 ea 07/19/22 amlodipine 2.5 mg tablet 2.5 mg PO DAILY #90 tabs 12/23/22 lisinopril 20 1 tab PO DAILY #90 tabs 12/23/22 mg-hydrochlorothiazide 25 mg tablet metoprolol tartrate 100 mg tablet 100 mg PO BID #180 tabs 01/06/23 (Lopressor) metformin 850 mg tablet 850 mg PO 3XD #270 tabs 02/28/23 empagliflozin 25 mg tablet 25 mg PO DAILY #90 tabs 05/02/23 (Jardiance) allopurinol 300 mg tablet 300 mg PO QDAY #90 tabs 09/01/23 doxycycline hyclate 100 mg tablet 100 mg PO BID #20 tabs 09/03/23 tramadol 50 mg tablet 50 mg PO QID PRN pain #10 tabs 09/03/23 cephalexin 500 mg capsule 500 mg PO QID #28 caps 09/06/23 Allergies Allergy/AdvReac Type Severity Reaction Status Date / Time oxycodone AdvReac Intermediate VOMITING Verified 09/12/23 13:00 Review of Systems <Yahir Marie MD - Last Filed: 09/13/23 07:38> Review of Systems Narrative: GENERAL: negative chills, fatigue, malaise, fever, sweats. HEENT: negative sinus pain, ear pain, sore throat RESPIRATORY: negative dyspnea, cough CARDIOVASCULAR: negative chest pain, palpitations GASTROINTESTINAL: negative nausea, vomiting, abdominal pain : negative dysuria, frequency, hematuria MUSCULOSKELETAL: negative muscle or bony pain SKIN: negative rash, skin lesions, positive skin wound/abscess NEUROLOGIC: negative weakness, numbness Patient History <Yahir Marie MD - Last Filed: 09/13/23 07:38> Medical History Infected inclusion cyst Ankylosing spondylitis Kidney stones Diverticular disease Myocardial infarction (~06/06/03) Family History Brother Age: 74 Lung cancer, lower lobe Ankylosing spondylitis Father Cancer Social History household members: none Smoking Status: Current every day smoker alcohol intake: current Smoking Status: Current every day smoker tobacco type: cigars alcohol intake frequency: holidays/special occasions only Substance Use Type: does not use Exam <Yahir Marie MD - Last Filed: 09/13/23 07:38> Narrative Exam Narrative: GENERAL: in no distress, not toxic not dyspneic HEAD: Normocephalic. EYES: Pupils equal round GASTROINTESTINAL: Abdomen soft, non-tender : Left of midline at the perineum between the anus and the scrotal sac there is an area of induration tenderness. No crepitus. No pain out of proportion exam. Not Jemal's. There is a small blood blister/vesicle at the center of an area of induration. It is 1 cm in diameter. Induration is subcutaneous, approximately 3 cm in diameter. It does not cross midline. It does not involve the anus or the scrotal sac. BACK: No flank tenderness. NEURO: AOx4. SKIN: Warm and dry PSYCH: Not anxious, is cooperative Initial Vital Signs Initial Vital Signs: Vital Signs Temperature 98.4 F 09/03/23 14:02 Pulse Rate 65 09/03/23 14:02 Respiratory Rate 18 09/03/23 14:02 Blood Pressure 125/65 09/03/23 14:02 Pulse Oximetry 96 09/03/23 14:02 Oxygen Delivery Method Room Air 09/03/23 14:02 <Lucinda Rfuf DO - Last Filed: 09/04/23 02:28> Initial Vital Signs Initial Vital Signs: Vital Signs Temperature 98.4 F 09/03/23 14:02 Pulse Rate 65 09/03/23 14:02 Respiratory Rate 18 09/03/23 14:02 Blood Pressure 125/65 09/03/23 14:02 Pulse Oximetry 96 09/03/23 14:02 Oxygen Delivery Method Room Air 09/03/23 14:02 Procedures <Yahir Marie MD - Last Filed: 09/13/23 07:38> Abscess I/D I&D #1: Time of procedure: 15:13 Site: other (Perineum) Side (if applicable): left Local Anesthetic: lidocaine 1% and with epi Amount of anesthesia used (mL): 2 Technique: incised with #11 blade Amount of fluid expressed (mL): 2 Irrigation: Yes Packing used?: plain Complications: other (None) Course <Yahir Marie MD - Last Filed: 09/13/23 07:38> Orders Ordered: Discontinued Medications Diphtheria/Tetanus/Acell Pertussis (Tet,Diph,Pertuss(Acell),Vac/Pf 0.5 Ml Syringe) 0.5 ml IM .ONCE ONE Stop: 09/03/23 15:04 Last Admin: 09/03/23 15:48 Dose: 0.5 ml Documented By: SPF Doxycycline Hyclate (Doxycycline Hyclate 100 Mg Tablet) 100 mg PO NOW ONE Stop: 09/03/23 15:04 Last Admin: 09/03/23 15:54 Dose: Not Given Documented By: SPF Doxycycline Hyclate 100 mg/ (Sodium Chloride) 100 mls @ 100 mls/hr IV NOW ONE Stop: 09/03/23 15:10 Last Infusion: 09/03/23 16:59 Dose: Infused Documented By: Admin: 09/03/23 15:49 Dose: 100 mls/hr Documented By: SPF Sodium Chloride (Normal Saline 0.9%) 1,000 mls @ 1,000 mls/hr IV BOLUS ONE Stop: 09/03/23 17:57 Last Infusion: 09/03/23 18:25 Dose: Infused Documented By: Admin: 09/03/23 17:24 Dose: 1,000 mls/hr Documented By: SHAHRIAR Lidocaine/Epinephrine (Lidocaine 1% W/Epi) 20 ml INJ INTRA-OP ONE Stop: 09/03/23 14:31 Last Admin: 09/03/23 14:50 Dose: 20 ml Documented By: SHAHRIAR Vital Signs Vital signs: Vital Signs - 8 hr 09/03/23 18:30 09/03/23 18:30 09/03/23 18:41 Pulse Rate 51 L 57 L Blood Pressure 116/62 Pulse Oximetry 98 100 09/03/23 19:00 09/03/23 19:30 09/03/23 19:36 Pulse Rate Blood Pressure 117/62 126/61 Pulse Oximetry 78 L 09/03/23 19:37 09/03/23 19:37 Pulse Rate 71 Blood Pressure 107/59 L Pulse Oximetry 99 <Lucinda Ruff, - Last Filed: 09/04/23 02:28> Orders Ordered: Discontinued Medications Diphtheria/Tetanus/Acell Pertussis (Tet,Diph,Pertuss(Acell),Vac/Pf 0.5 Ml Syringe) 0.5 ml IM .ONCE ONE Stop: 09/03/23 15:04 Last Admin: 09/03/23 15:48 Dose: 0.5 ml Documented By: SPF Doxycycline Hyclate (Doxycycline Hyclate 100 Mg Tablet) 100 mg PO NOW ONE Stop: 09/03/23 15:04 Last Admin: 09/03/23 15:54 Dose: Not Given Documented By: SPF Doxycycline Hyclate 100 mg/ (Sodium Chloride) 100 mls @ 100 mls/hr IV NOW ONE Stop: 09/03/23 15:10 Last Infusion: 09/03/23 16:59 Dose: Infused Documented By: Admin: 09/03/23 15:49 Dose: 100 mls/hr Documented By: SHAHRIAR Sodium Chloride (Normal Saline 0.9%) 1,000 mls @ 1,000 mls/hr IV BOLUS ONE Stop: 09/03/23 17:57 Last Infusion: 09/03/23 18:25 Dose: Infused Documented By: Admin: 09/03/23 17:24 Dose: 1,000 mls/hr Documented By: SHAHRIAR Lidocaine/Epinephrine (Lidocaine 1% W/Epi) 20 ml INJ INTRA-OP ONE Stop: 09/03/23 14:31 Last Admin: 09/03/23 14:50 Dose: 20 ml Documented By: SHAHRIAR Vital Signs Vital signs: Vital Signs - 8 hr 09/03/23 18:30 09/03/23 18:30 09/03/23 18:41 Pulse Rate 51 L 57 L Blood Pressure 116/62 Pulse Oximetry 98 100 09/03/23 19:00 09/03/23 19:30 09/03/23 19:36 Pulse Rate Blood Pressure 117/62 126/61 Pulse Oximetry 78 L 09/03/23 19:37 09/03/23 19:37 Pulse Rate 71 Blood Pressure 107/59 L Pulse Oximetry 99 MDM - Skin/Abscess/Foreign Bdy <Yahir Marie MD - Last Filed: 09/13/23 07:38> Lab Data 09/03/23 15:20 09/03/23 15:20 Labs: Lab Results 09/03/23 09/03/23 Range/Units 15:20 18:13 WBC 9.8 (4.5-11.0) X10^3/uL RBC 5.14 (4.5-5.9) X10^6/uL Hgb 16.1 (13.5-17.5) g/dL Hct 46.7 (41-53) % MCV 90.9 (80-100) fL MCH 31.3 (26-34) PG MCHC 34.4 (30-36) % RDW 13.7 (11.6-14.8) % Plt Count 129 L (150-400) X10^3/uL Neut % (Auto) 70.7 (50-75) % Lymph % (Auto) 18.8 L (25-40) % [place] % (Auto) 6.3 (3-14) % Eos % (Auto) 3.5 (2-4) % Baso % (Auto) 0.7 (0-2) % Neut # (Auto) 6900 (5086-1077) /uL Lymph # (Auto) 1800 (5851-3598) /uL [place] # (Auto) 600 (0-900) /uL Eos # (Auto) 300 (0-450) /uL Baso # (Auto) 100 (0-100) /uL Sodium 135 L (137-145) mmol/L Potassium 3.4 (3.4-5.1) mmol/L Chloride 101 (98-107) mmol/L Carbon Dioxide 26 (22-32) mmol/L BUN 19 (9-20) mg/dL Creatinine 0.83 (0.66-1.25) mg/dL Estimated GFR > 60 (>60) mL/min BUN/Creatinine Ratio 22.9 H (6-22) Glucose 210 H (80-110) mg/dL Lactate 2.5 H 1.9 (0.7-2.1) mmol/L Calcium 9.2 (8.4-10.2) mg/dL Total Bilirubin 2.2 H (0.2-1.3) mg/dL AST 21 (17-59) IU/L ALT 18 (<50) IU/L Alkaline Phosphatase 64 (38-126) U/L Total Protein 7.0 (6.3-8.2) g/dL Albumin 4.2 (3.5-5.0) g/dL Globulin 2.8 (1.7-4.1) g/dL Albumin/Globulin Ratio 1.5 (1.0-2.8) Procalcitonin 0.06 (<0.5) ng/mL MDM Narrative Medical decision making narrative: Patient here complains of pain swelling to the skin between the anus in the scrotal area. Right of midline. Patient has had multiple procedures at this site for cutaneous abscess. Has seen General surgery for this complaint as well. This episode started about a week ago. Has not been on any recent antibiotics. Patient admitted last year for IV antibiotics. I did review the chart and due to the lactic acid being elevated patient was kept overnight for IV antibiotics. Never had a fever. No leukocytosis. This was in December of 2022. Patient denies any fever or chills. Patient states last Monday he felt this area bleed again. Within 2 days it stopped but then started pain and swelling. On exam there is a small blood blister/vesicle at the perineum. There is surrounding induration and tenderness no crepitus. No pain out of portion exam. Not Jemal's After history and exam CBC CMP procalcitonin lactic acid IV doxycycline wound culture incision and drainage MDM Medical records reviewed: December 2022 admission this hospital Differential considered: Includes but not limited to Jemal's continues to abscess perirectal abscess Lab Test results independently reviewed as above. Pertinent findings: Consultations: Treatments: Tdap doxycycline Re-evaluations: 5:30 p.m. Patient in no distress. Requesting dinner tray. Updated him results. Likely going to be discharged home. Normal saline and then repeat lactic acid Discussion: Diagnosis: Perineal abscess 6:00 p.m. Cynthia: Sign out to Dr Ruff, reassess patient after normal saline 1 L, need repeat lactic acid. Likely discharge home on doxycycline. Patient does have I and D packing in place that needs to be removed in 24-48 hours. Doxycycline IV has been given here. <Lucinda Ruff, - Last Filed: 09/04/23 02:28> Lab Data Labs: Lab Results 09/03/23 09/03/23 Range/Units 15:20 18:13 WBC 9.8 (4.5-11.0) X10^3/uL RBC 5.14 (4.5-5.9) X10^6/uL Hgb 16.1 (13.5-17.5) g/dL Hct 46.7 (41-53) % MCV 90.9 (80-100) fL MCH 31.3 (26-34) PG MCHC 34.4 (30-36) % RDW 13.7 (11.6-14.8) % Plt Count 129 L (150-400) X10^3/uL Neut % (Auto) 70.7 (50-75) % Lymph % (Auto) 18.8 L (25-40) % [place] % (Auto) 6.3 (3-14) % Eos % (Auto) 3.5 (2-4) % Baso % (Auto) 0.7 (0-2) % Neut # (Auto) 6900 (2350-8382) /uL Lymph # (Auto) 1800 (2911-5962) /uL [place] # (Auto) 600 (0-900) /uL Eos # (Auto) 300 (0-450) /uL Baso # (Auto) 100 (0-100) /uL Sodium 135 L (137-145) mmol/L Potassium 3.4 (3.4-5.1) mmol/L Chloride 101 (98-107) mmol/L Carbon Dioxide 26 (22-32) mmol/L BUN 19 (9-20) mg/dL Creatinine 0.83 (0.66-1.25) mg/dL Estimated GFR > 60 (>60) mL/min BUN/Creatinine Ratio 22.9 H (6-22) Glucose 210 H (80-110) mg/dL Lactate 2.5 H 1.9 (0.7-2.1) mmol/L Calcium 9.2 (8.4-10.2) mg/dL Total Bilirubin 2.2 H (0.2-1.3) mg/dL AST 21 (17-59) IU/L ALT 18 (<50) IU/L Alkaline Phosphatase 64 (38-126) U/L Total Protein 7.0 (6.3-8.2) g/dL Albumin 4.2 (3.5-5.0) g/dL Globulin 2.8 (1.7-4.1) g/dL Albumin/Globulin Ratio 1.5 (1.0-2.8) Procalcitonin 0.06 (<0.5) ng/mL MDM Narrative Medical decision making narrative: Patient here complains of pain swelling to the skin between the anus in the scrotal area. Right of midline. Patient has had multiple procedures at this site for cutaneous abscess. Has seen General surgery for this complaint as well. This episode started about a week ago. Has not been on any recent antibiotics. Patient admitted last year for IV antibiotics. I did review the chart and due to the lactic acid being elevated patient was kept overnight for IV antibiotics. Never had a fever. No leukocytosis. This was in December of 2022. Patient denies any fever or chills. Patient states last Monday he felt this area bleed again. Within 2 days it stopped but then started pain and swelling. On exam there is a small blood blister/vesicle at the perineum. There is surrounding induration and tenderness no crepitus. No pain out of portion exam. Not Jemal's After history and exam CBC CMP procalcitonin lactic acid IV doxycycline wound culture incision and drainage MDM Medical records reviewed: December 2022 admission this hospital Differential considered: Includes but not limited to Jemal's continues to abscess perirectal abscess Lab Test results independently reviewed as above. Pertinent findings: Consultations: Treatments: Tdap doxycycline Re-evaluations: 5:30 p.m. Patient in no distress. Requesting dinner tray. Updated him results. Likely going to be discharged home. Normal saline and then repeat lactic acid Discussion: Diagnosis: Perineal abscess 6:00 p.m. Cynthia: Sign out to Dr Ruff, reassess patient after normal saline 1 L, need repeat lactic acid. Likely discharge home on doxycycline. Patient does have I and D packing in place that needs to be removed in 24-48 hours. Doxycycline IV has been given here. 09/03/2023 Dr. Ruff: Patient signed out by Dr. Marie to myself. Patient is seen and evaluated by myself. He appears very well. Reviewed his labs. Patient received dose of into buttock here. He states pain is pretty minimal. Patient's repeat lactate is normal, labs, vitals and workup were reviewed. Patient was also seen. He is nontoxic nonseptic appearing. Plan for discharge home doxycycline with plan for packing to be removed in 24-48 hours. Reviewed findings with patient plan for DC he drove himself today he is very well-appearing. Discussed return precautions. He can return here for his packing to be rechecked and to have low threshold to return if worsening. Discharge Plan Departure Patient Disposition: Home Clinical Impression: Abscess of perineum Instructions: DI for Skin Abscess Activity Restrictions/Additional Instructions: Follow up in 24-48 hours to have your packing removed and possibly replaced. This can be done with primary care or the emergency department. Take antibiotics until completed. Take pain medication 1-2 tablets every 6 hours as needed for pain. This medication can make you sleepy do not drive, perform hazardous activities or make any major decisions while taking it. This medication will make you constipated please take a stool softener once to twice daily until stools are soft and regular. Prescription sent to [facility] in [place]. Return for fevers, rapidly worsening pain, increasing drainage, new swelling, persistent vomiting or other new or concerning changes. Prescriptions: New doxycycline hyclate 100 mg tablet 100 mg PO BID Qty: 20 0RF tramadol 50 mg tablet 50 mg PO QID PRN (Reason: pain) Qty: 10 0RF No Action atorvastatin 40 mg tablet 40 mg PO BEDTIME Qty: 90 3RF amlodipine 2.5 mg tablet 2.5 mg PO DAILY Qty: 90 3RF lisinopril-hydrochlorothiazide 20-25 mg tablet 1 tab PO DAILY Qty: 90 3RF metformin 850 mg tablet 850 mg PO 3XD Qty: 270 3RF Jardiance 25 mg tablet 25 mg PO DAILY Qty: 90 1RF allopurinol 300 mg tablet 300 mg PO QDAY Qty: 90 1RF (DME) Glucose: Test Strips Accu-Chek 0 .Route .MEDSUPPLY Qty: 100 11RF Dose Instruction: As directed Rx Instructions: CHECK BLOOD SUGAR DAILY metoprolol tartrate [Lopressor] 100 mg tablet 100 mg PO BID Qty: 180 0RF aspirin [Aspirin Childrens] 81 mg tablet,chewable 81 mg PO DAILY cephalexin 500 mg capsule 500 mg PO QID Qty: 28 0RF acetaminophen [Tylenol] 325 mg Capsule 650 mg PO BID Referrals: Claire Mcdonald DO [Primary Care Provider] - Stand Alone Forms: Patient Portal/API
[2023-09-03] MEDS: LIDOCAINE 1% W/EPI 20 ML INJ (14:50)
[2023-09-03 15:36] LABS: Add Manual Diff / Slide Review NO; Basophils Absolute Auto 100 /uL (0-100); Basophils Percent Auto 0.7 % (0-2); Eosinophils Absolute Auto 300 /uL (0-450); Eosinophils Percent Auto 3.5 % (2-4); Hematocrit 46.7 % (41-53); Hemoglobin 16.1 g/dL (13.5-17.5); Lymphocytes Absolute Auto 1800 /uL (1100-4500); Lymphocytes Percent Auto 18.8 % (25-40); Mean Corpuscular HGB Conc 34.4 % (30-36); Mean Corpuscular Hemoglobin 31.3 PG (26-34); Mean Corpuscular Volume 90.9 fL (80-100); Monocytes Absolute Auto 600 /uL (0-900); Monocytes Percent Auto 6.3 % (3-14); Neutrophils Absolute Auto 6900 /uL (1500-7000); Neutrophils Percent Auto 70.7 % (50-75); Platelet Count 129 X10^3/uL (150-400); Red Blood Cell Count 5.14 X10^6/uL (4.5-5.9); Red Cell Distribution Width 13.7 % (11.6-14.8); White Blood Cell Count 9.8 X10^3/uL (4.5-11.0)
[2023-09-03 15:46] LABS: Lactate (Lactic Acid) 2.5 mmol/L (0.7-2.1)
[2023-09-03 15:47] LABS: Alanine Aminotransferase 18 IU/L (<50); Albumin 4.2 g/dL (3.5-5.0); Albumin Globulin Ratio 1.5 (1.0-2.8); Alkaline Phosphatase 64 U/L (38-126); Aspartate Aminotransferase 21 IU/L (17-59); BUN Creatinine Ratio 22.9 (6-22); Bilirubin Total 2.2 mg/dL (0.2-1.3); Blood Urea Nitrogen 19 mg/dL (9-20); Calcium 9.2 mg/dL (8.4-10.2); Carbon Dioxide 26 mmol/L (22-32); Chloride 101 mmol/L (98-107); Estimated Glomerular Filt Rate > 60 mL/min (>60); Globulin 2.8 g/dL (1.7-4.1); Glucose 210 mg/dL (80-110); HEMOLYSIS 16 (0-50); Potassium 3.4 mmol/L (3.4-5.1); Sodium 135 mmol/L (137-145)
[2023-09-03] MEDS: TET,DIPH,PERTUSS(ACELL),VAC/PF 0.5 ML SYRINGE IM (15:48)
[2023-09-03] MEDS: DOXYCYCLINE 100 MG in SODIUM CHLORIDE 0.9% 100 ML IV (15:49)
[2023-09-03 16:03] LABS: Procalcitonin 0.06 ng/mL (<0.5)
[2023-09-03 17:08] LABS: Reflexed Lactate in 2 Hours Y
[2023-09-03] MEDS: SODIUM CHLORIDE 0.9% 1,000 ML 1000 ML IV (17:24)
[2023-09-03 18:31] LABS: Lactate 2HR (Lactic Acid Rflx) 1.9 mmol/L (0.7-2.1)
== END 2023-09-03 19:58 | disposition home or self-care (01) ==
PROVIDERS: Emergency Medicine; Emergency Provider Emergency Medicine; PCP Family Medicine
DX: L02.215 Cutaneous abscess of perineum (principal); Z23 Encounter for immunization
CPT/HCPCS: 36415; 56405; 80053; 83605; 84145; 85025; 87040; 87070; 87075; 87077; 87186; 87205; 90471; 96365; 99284; 90715

== ENCOUNTER 2023-11-10 18:12 | Emergency (ER) | payer MEDICARE, SELFPAY ==
[2023-01-02 19:54] VITALS: BMI 22.9
[2023-11-10] VITALS (13 sets, daily range): BP systolic 118–143; BP diastolic 64–83; PULSE 73–102; RESP 12–34; TEMP 36.6; O2SAT 91–100; BMI 22.8
--- NOTE | 2023-11-10 18:25 | DI.RAD.S_ITS ---
PROCEDURE: XR CHEST 1V INDICATIONS: Chest pain TECHNIQUE: One view of the chest was acquired. COMPARISON: [facility], , CHEST 2 VIEW, 03/21/2013, 15:26. FINDINGS: Surgical changes and devices: None. Lungs and pleura: Lungs are clear. No pleural effusions or pneumothorax. Mediastinum: Mediastinal contours appear normal. Heart size is normal. Bones and chest wall: No suspicious bony lesions. Overlying soft tissues appear unremarkable. IMPRESSION: No acute cardiopulmonary abnormality is seen. Approved by: Sayra Cain M.D.,Ph.D. on 11/10/2023 at 17:53
[2023-11-10 18:29] LABS: Add Manual Diff / Slide Review NO; Basophils Absolute Auto 100 /uL (0-100); Basophils Percent Auto 0.5 % (0-2); Eosinophils Absolute Auto 200 /uL (0-450); Eosinophils Percent Auto 1.4 % (2-4); Hematocrit 52.1 % (41-53); Hemoglobin 17.6 g/dL (13.5-17.5); Lymphocytes Absolute Auto 1400 /uL (1100-4500); Lymphocytes Percent Auto 11.4 % (25-40); Mean Corpuscular HGB Conc 33.7 % (30-36); Mean Corpuscular Hemoglobin 31.1 PG (26-34); Mean Corpuscular Volume 92.2 fL (80-100); Monocytes Absolute Auto 600 /uL (0-900); Neutrophils Absolute Auto 10200 /uL (1500-7000); Neutrophils Percent Auto 81.7 % (50-75); Platelet Count 155 X10^3/uL (150-400); Red Blood Cell Count 5.65 X10^6/uL (4.5-5.9); Red Cell Distribution Width 14.1 % (11.6-14.8); White Blood Cell Count 12.4 X10^3/uL (4.5-11.0)
[2023-11-10 18:31] LABS: INR 0.9 (0.9-1.3); Prothrombin Time 10.7 SECONDS (9.4-12.5)
--- NOTE | 2023-11-10 18:33 | EKG_ITS ---
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
[2023-11-10 18:34] LABS: PTT Partial Thromboplastin Tim 38 SECONDS (25.1-36.5)
[2023-11-10 18:36] LABS: Alanine Aminotransferase 127 IU/L (<50); Albumin 4.7 g/dL (3.5-5.0); Albumin Globulin Ratio 1.5 (1.0-2.8); Alkaline Phosphatase 106 U/L (38-126); Aspartate Aminotransferase 409 IU/L (17-59); BUN Creatinine Ratio 20.3 (6-22); Bilirubin Total 3.4 mg/dL (0.2-1.3); Blood Urea Nitrogen 16 mg/dL (9-20); Calcium 9.7 mg/dL (8.4-10.2); Carbon Dioxide 30 mmol/L (22-32); Chloride 101 mmol/L (98-107); Creatine Kinase 35 U/L (55-170); Estimated Glomerular Filt Rate > 60 mL/min (>60); Globulin 3.1 g/dL (1.7-4.1); Glucose 189 mg/dL (80-110); HEMOLYSIS 18 (0-50); Lipase 682 U/L (23-300); Magnesium 1.7 mg/dL (1.6-2.3); Potassium 3.3 mmol/L (3.4-5.1); Sodium 138 mmol/L (137-145); Total Protein 7.8 g/dL (6.3-8.2)
--- NOTE | 2023-11-10 18:44 | ED_ITS ---
HPI - Chest Pain General Chief Complaint: Chest Pain Stated Complaint: Chest pain x4hrs HX OK Time Seen by Provider: 11/10/23 18:42 Source: EMS Mode of arrival: EMS History of Present Illness HPI narrative: 73-year-old male reports history of prior heart attack 10 years ago but had no coronary interventions, subsequently has had right femoral artery stenting, followed by junior programmer Dr. Lebron, complains of 4 hours duration of left anterior chest discomfort, some radiation to the back, no associated diaphoresis, no nausea or vomiting, no syncope or presyncope, no palpitation or irregular or fast heart rate sensation. He took baby aspirin, arrived by EMS, recalls single dose sublingual nitroglycerin given, no chest pain subsequent. On arrival still has no chest pain. No recent injury trauma or new activities. No cough, fevers, shortness of breath. No history of blood clots to legs or lungs known. No pain or swelling to legs. Related Data Home Medications Medication Instructions Recorded Confirmed aspirin 81 mg chewable tablet 81 mg PO DAILY 06/28/18 09/12/23 (Aspirin Childrens) acetaminophen 325 mg capsule 650 mg PO BID 01/02/23 09/12/23 (Tylenol) Previous Rx's Medication Instructions Recorded atorvastatin 40 mg tablet 40 mg PO BEDTIME #90 tabs 07/20/20 Glucose: Test Strips Accu-Chek #100 ea 07/19/22 amlodipine 2.5 mg tablet 2.5 mg PO DAILY #90 tabs 12/23/22 lisinopril 20 1 tab PO DAILY #90 tabs 12/23/22 mg-hydrochlorothiazide 25 mg tablet metoprolol tartrate 100 mg tablet 100 mg PO BID #180 tabs 01/06/23 (Lopressor) metformin 850 mg tablet 850 mg PO 3XD #270 tabs 02/28/23 allopurinol 300 mg tablet 300 mg PO QDAY #90 tabs 09/01/23 doxycycline hyclate 100 mg tablet 100 mg PO BID #20 tabs 09/03/23 tramadol 50 mg tablet 50 mg PO QID PRN pain #10 tabs 09/03/23 cephalexin 500 mg capsule 500 mg PO QID #28 caps 09/06/23 empagliflozin 25 mg tablet 25 mg PO DAILY #90 tabs 09/26/23 (Jardiance) Allergies Allergy/AdvReac Type Severity Reaction Status Date / Time oxycodone AdvReac Intermediate VOMITING Verified 11/10/23 18:29 Review of Systems Review of Systems Narrative: Per HPI Patient History Medical History Infected inclusion cyst Ankylosing spondylitis Kidney stones Diverticular disease Myocardial infarction (~06/06/03) Family History Brother Age: 74 Lung cancer, lower lobe Ankylosing spondylitis Father Cancer Social History household members: none Smoking Status: Current every day smoker alcohol intake: current Smoking Status: Current every day smoker tobacco type: cigars alcohol intake frequency: holidays/special occasions only Substance Use Type: does not use Exam Narrative Exam Narrative: GENERAL: Well-developed patient, in mild distress. HEAD: Atraumatic. Normocephalic. EYES: Pupils equal round and reactive. Extraocular motions intact. No scleral icterus. No injection or drainage. ENT: Nose without bleeding, purulent drainage. Throat without erythema, tonsillar hypertrophy or exudate. Airway patent. NECK: Trachea midline. Non tender CARDIOVASCULAR: Regular rate and rhythm without murmurs, gallops, or rubs. RESPIRATORY: Clear to auscultation. Breath sounds equal bilaterally. No wheezes, rales, or rhonchi. GASTROINTESTINAL: Abdomen soft, non-tender, nondistended. EXTREMITIES: No edema or joint tenderness. BACK: Nontender without deformity or crepitance. No flank tenderness. NEURO: AOx3. SKIN: No rash or erythema of visible areas Initial Vital Signs Initial Vital Signs: Vital Signs Temperature 98 F 11/10/23 18:09 Pulse Rate 100 H 11/10/23 18:09 Respiratory Rate 12 11/10/23 18:09 Blood Pressure 126/70 11/10/23 18:09 Pulse Oximetry 100 11/10/23 18:09 Oxygen Delivery Method Room Air 11/10/23 18:09 Course Orders Ordered: Discontinued Medications Aspirin (Aspirin 81 Mg Chew Tab) 324 mg PO NOW ONE Stop: 11/10/23 18:26 Last Admin: 11/10/23 18:28 Dose: Not Given Documented By: DKB Potassium Chloride (Potassium Chloride 20 Meq/15 Ml Udc) 20 meq PO NOW ONE Stop: 11/10/23 19:03 Last Admin: 11/10/23 19:15 Dose: 20 meq Documented By: CATHY Vital Signs Vital signs: Vital Signs - 8 hr 11/10/23 18:09 11/10/23 18:19 11/10/23 18:20 Temperature 98 F Pulse Rate 100 H 102 H Respiratory Rate 12 27 H Blood Pressure 126/70 119/64 Pulse Oximetry 100 97 Oxygen Delivery Method Room Air 11/10/23 18:20 11/10/23 18:30 11/10/23 18:30 Temperature Pulse Rate 98 H 95 H Respiratory Rate 19 34 H Blood Pressure 118/65 Pulse Oximetry 97 96 Oxygen Delivery Method 11/10/23 19:00 11/10/23 19:00 11/10/23 19:30 Temperature Pulse Rate 92 H Respiratory Rate 23 Blood Pressure 143/75 H 131/68 Pulse Oximetry 97 Oxygen Delivery Method 11/10/23 19:30 11/10/23 20:20 11/10/23 20:30 Temperature Pulse Rate 78 81 81 Respiratory Rate 15 24 29 H Blood Pressure Pulse Oximetry 96 91 99 Oxygen Delivery Method 11/10/23 21:00 11/10/23 21:30 11/10/23 22:06 Temperature Pulse Rate 77 80 78 Respiratory Rate 17 32 H 23 Blood Pressure Pulse Oximetry 97 97 99 Oxygen Delivery Method 11/10/23 22:07 11/10/23 22:07 Temperature Pulse Rate 79 Respiratory Rate 20 Blood Pressure 143/78 H Pulse Oximetry 99 Oxygen Delivery Method MDM - Chest Pain Lab Data Attestation: I reviewed the patient's lab results. Lab results narrative: White blood cell count 49990 noted, hemoglobin 17.6, potassium low 3.3, initial troponin negative 11/10/23 18:05 11/10/23 18:05 Labs: Lab Results 11/10/23 11/10/23 Range/Units 18:05 20:26 WBC 12.4 H (4.5-11.0) X10^3/uL RBC 5.65 (4.5-5.9) X10^6/uL Hgb 17.6 H (13.5-17.5) g/dL Hct 52.1 (41-53) % MCV 92.2 (80-100) fL MCH 31.1 (26-34) PG MCHC 33.7 (30-36) % RDW 14.1 (11.6-14.8) % Plt Count 155 (150-400) X10^3/uL Neut % (Auto) 81.7 H (50-75) % Lymph % (Auto) 11.4 L (25-40) % [place] % (Auto) 5.0 (3-14) % Eos % (Auto) 1.4 L (2-4) % Baso % (Auto) 0.5 (0-2) % Neut # (Auto) 33474 H (3623-3573) /uL Lymph # (Auto) 1400 (5196-8641) /uL [place] # (Auto) 600 (0-900) /uL Eos # (Auto) 200 (0-450) /uL Baso # (Auto) 100 (0-100) /uL PT 10.7 (9.4-12.5) SECONDS INR 0.9 (0.9-1.3) APTT 38 H (25.1-36.5) SECONDS D-Dimer 545 H (<500) ng/ml Sodium 138 (137-145) mmol/L Potassium 3.3 L (3.4-5.1) mmol/L Chloride 101 (98-107) mmol/L Carbon Dioxide 30 (22-32) mmol/L BUN 16 (9-20) mg/dL Creatinine 0.79 (0.66-1.25) mg/dL Estimated GFR > 60 (>60) mL/min BUN/Creatinine Ratio 20.3 (6-22) Glucose 189 H (80-110) mg/dL Calcium 9.7 (8.4-10.2) mg/dL Magnesium 1.7 (1.6-2.3) mg/dL Total Bilirubin 3.4 H (0.2-1.3) mg/dL AST 409 H (17-59) IU/L ALT 127 H (<50) IU/L Alkaline Phosphatase 106 (38-126) U/L Total Creatine Kinase 35 L (55-170) U/L Troponin I < 0.012 < 0.012 (0.01-0.034) ng/mL NT-Pro-B Natriuret Pep 99 (<125) pg/mL Total Protein 7.8 (6.3-8.2) g/dL Albumin 4.7 (3.5-5.0) g/dL Globulin 3.1 (1.7-4.1) g/dL Albumin/Globulin Ratio 1.5 (1.0-2.8) Lipase 682 H (23-300) U/L ECG Data Attestation: I personally reviewed and interpreted this ECG as follows: Interpretation: Normal sinus rhythm with rate of 91, no obvious ST segment elevation changes, T- wave inversion noted in lead 3 but upright appearing in leads 2 and F. DE 156, QRS 94, QTC 496. MDM Narrative Medical decision making narrative: 73-year-old male with history of reported heart attack 10 years ago but apparently no coronary artery interventions, no recent stress testing, history of PID status post stenting right leg vessel remote, now with 4 hours duration of resolved chest pain, after baby aspirin self administered, and EMS sublingual nitroglycerin single dose. Screening EKG without obvious ischemic changes. Chest x-ray and labs pending at this time. 1904, chest history negative, potassium 3.3 low ordered oral repletion, initial troponin negative. We will order interval repeat troponin. D-dimer results pending. 1944, D-dimer positive, CT angiogram chest abdomen and pelvis aortogram study ordered. Interval troponin to be drawn later this evening. CT angio chest abdomen and pelvis, normal aorta, no mention of pulmonary embolus, no acute changes. Lungs clear, cholelithiasis incidentally noticed, no evidence for acute cholecystitis, nonobstructing stone lower right kidney. Negative study. Repeat troponin negative. We will discharge home, further workup as an outpatient. Patient given copy of his report, told about the cholelithiasis in the kidney stone, likely unrelated to his current discomfort. Advised to take aspirin daily for now. Follow up with his physician advised, further workup as an outpatient for now. Return precautions discussed. Critical Care Time Critical Care Time Critical Care Time: Yes Total Critical Care Time: 31 Attestation: The high probability of a clinically significant, sudden or life threatening deterioration of the [cardiopulmonary] system(s) required my full and direct attention, intervention and personal management. The aggregate critical care time was [31] minutes. This time is in addition to time spent performing reported procedures but includes the following: [x] Data Review and interpretation [x] Patient assessment and monitoring of vital signs [x] Documentation [x] Medication orders and management Discharge Plan Departure Patient Disposition: Home Clinical Impression: Chest pain, Hypokalemia, Cholelithiasis, Kidney stone Instructions: DI for Kidney Stones, DI for Gallstones, DI for Chest Pain Activity Restrictions/Additional Instructions: Resolved episode of chest discomfort, EKG and serial blood tests not suggestive of heart attack at this time, no ongoing chest pain. CT angiogram showed normal aorta, no blood clots to the lungs, no acute process noted, however there was incidentally noted some gallbladder stones without inflamed gallbladder appearance, and nonobstructing kidney stones, these findings are not likely causing any pain at this time. Consider use of aspirin daily. Follow up with your regular provider early next Monday, further workup for now as an outpatient. Return to this/nearest emergency department for any change worsening symptoms or any concerns prior Prescriptions: No Action atorvastatin 40 mg tablet 40 mg PO BEDTIME Qty: 90 3RF amlodipine 2.5 mg tablet 2.5 mg PO DAILY Qty: 90 3RF lisinopril-hydrochlorothiazide 20-25 mg tablet 1 tab PO DAILY Qty: 90 3RF metformin 850 mg tablet 850 mg PO 3XD Qty: 270 3RF allopurinol 300 mg tablet 300 mg PO QDAY Qty: 90 1RF Jardiance 25 mg tablet 25 mg PO DAILY Qty: 90 0RF (DME) Glucose: Test Strips Accu-Chek 0 .Route .MEDSUPPLY Qty: 100 11RF Dose Instruction: As directed Rx Instructions: CHECK BLOOD SUGAR DAILY metoprolol tartrate [Lopressor] 100 mg tablet 100 mg PO BID Qty: 180 0RF aspirin [Aspirin Childrens] 81 mg tablet,chewable 81 mg PO DAILY cephalexin 500 mg capsule 500 mg PO QID Qty: 28 0RF doxycycline hyclate 100 mg tablet 100 mg PO BID Qty: 20 0RF tramadol 50 mg tablet 50 mg PO QID PRN (Reason: pain) Qty: 10 0RF acetaminophen [Tylenol] 325 mg Capsule 650 mg PO BID Referrals: Claire Mcdonald DO [Primary Care Provider] - Stand Alone Forms: Patient Portal/API
[2023-11-10 18:47] LABS: NT-proBNP (BNP-Adult 18+) 99 pg/mL (<125); Troponin I < 0.012 ng/mL (0.01-0.034)
[2023-11-10] MEDS: POTASSIUM CHLORIDE 20 MEQ/15 ML UDC PO (19:15)
[2023-11-10 19:18] LABS: D Dimer 545 ng/ml (<500)
--- NOTE | 2023-11-10 19:47 | DI.CT.S_ITS ---
PROCEDURE: CT ANGIO CHEST ABDOMEN PELVIS INDICATIONS: chest pain, Dd positive, aortogram TECHNIQUE: Precontrast 5 mm thick sections acquired from the lung apices to the iliac crests. After the administration of intravenous contrast, 2.5 mm thick sections again acquired from the lung apices to the iliac crests. Maximum intensity projection (MIP) oblique sagittal and coronal reformats were then acquired. For radiation dose reduction, the following was used: automated exposure control. COMPARISON: [facility], CT, CT KUB, 05/16/2023, 16:04. FINDINGS: Image quality: Diagnostic. AORTA: No aortic aneurysm. No acute aortic syndrome. CHEST: Lower Neck: No enlarged lymph nodes. Thyroid: No thyroid nodules which require sonographic evaluation. Axillae: No enlarged lymph nodes. Chest Wall: Unremarkable. Lungs and Pleura: No pneumothorax or pleural effusions. No consolidation or suspicious nodules. Heart: Heart size is normal. No pericardial effusion. Thoracic Vessels: Pulmonary arteries demonstrate normal size. Pulmonary arteries are well opacified without intraluminal filling defects. Mediastinum and Monisha: No enlarged lymph nodes. Esophagus: No wall thickening. No hiatal hernia. ABDOMEN: Liver: No solid mass. Moderate hepatic steatosis is seen. Gallbladder: Calcified stones are seen in dependent portion of gallbladder lumen. No gallbladder wall thickening. Biliary ducts: No biliary dilation. Pancreas: No ductal dilation. Spleen: Size is within normal limits. Adrenal Glands: No adrenal nodules. Kidneys and Ureters: No hydronephrosis. 6 mm nonobstructing stone is again seen in lower pole right kidney. No solid mass. No complex renal cystic lesion which requires follow up. Stomach and Bowel: There is no bowel obstruction or abnormal bowel wall thickening. No mesenteric fat stranding. Mild sigmoid diverticulosis is seen without CT evidence of acute diverticulitis. Normal appendix is seen in right lower quadrant. No abscess collection. Peritoneum: No abnormal intraperitoneal fluid. No free air. Ventral Wall: No hernia. Abdominal Nodes: No retroperitoneal or mesenteric adenopathy by size criteria. Vessels: Inferior vena cava is normal in size. PELVIS: Pelvic Organs: Markedly enlarged prostate gland with mass effect on floor of urinary bladder is seen.. Bladder: Unremarkable. Pelvic Nodes: No enlarged lymph nodes. Miscellaneous: No inguinal hernias are seen. Bones: No aggressive appearing bony lesions. Postsurgical changes are seen in left femoral neck from prior internal fixation. IMPRESSION: 1. No aortic aneurysm or dissection. 2. No evidence of pulmonary emboli. No hemodynamically significant stenosis is seen in major branches of thoracic and abdominal aorta. 3. Bilateral lungs are clear. 4. No acute inflammatory process is seen in abdomen or pelvis. 5. Cholelithiasis without CT evidence of acute cholecystitis. 6. Nonobstructing stone in lower pole right kidney. No hydronephrosis or hydroureter. Enlarged prostate gland with significant mass effect on floor of urinary bladder. No gross bladder wall abnormalities. Dictated by: Yrn Mckeon M.D. on 11/10/2023 at 20:52 Approved by: Yrn Mckeon M.D. on 11/10/2023 at 20:57
[2023-11-10 21:34] LABS: Troponin I < 0.012 ng/mL (0.01-0.034)
== END 2023-11-10 22:51 | disposition home or self-care (01) ==
PROVIDERS: Emergency Provider Emergency Medicine; PCP Family Medicine
DX: R07.9 Chest pain, unspecified (principal); E87.6 Hypokalemia; N20.0 Calculus of kidney; K80.20 Calculus of gallbladder without cholecystitis without obstruction; I25.2 Old myocardial infarction
CPT/HCPCS: 36415; 71045; 71275; 74174; 80053; 82550; 83690; 83735; 83880; 84484; 85025; 85379; 85610; 85730; 93005; 99284; Q9967

== ENCOUNTER → 2023-12-15 09:16 | Outpatient (CLI) | payer MEDICARE, SELFPAY ==
[2023-01-02 19:54] VITALS: BMI 22.9
--- NOTE | 2023-12-15 18:21 | DI.NM.S_ITS ---
DATE OF SERVICE: 12/15/2023 PROCEDURE: Pharmacological perfusion study. INDICATIONS: Chest pain with known history of RCA stent in 2003, hypertension, hyperlipidemia. RADIOPHARMACEUTICAL: 25 millicurie technetium-99m Myoview IV was injected at stress and 12.5 millicurie technetium-99m Myoview IV was injected at rest. CARDIAC STRESS: The patient underwent IV Lexiscan perfusion study under the supervision of an attending staff using standard intravenous Lexiscan as per protocol. The patient remained hemodynamically stable. Baseline blood pressure about 96/58. Baseline rhythm sinus with nonspecific ST-T changes. During stress, no convincing new ischemic changes. No significant arrhythmias. No chest discomfort. The patient had minimal dyspnea. RAW DATA: There is increased subdiaphragmatic activity. GATED STUDY: Stress LV ejection fraction 92 and resting LV ejection fraction 88% without any obvious wall motion abnormalities. Resting end- diastolic volume 59 mL. TID ratio 0.65, which is within normal limits. Lung/heart ratio 0.39, which is within normal limits. MYOCARDIAL PERFUSION SCAN: Stress supine and resting supine images were compared to each other. There is a normal myocardial perfusion. No convincing ischemia infarction. Summed stress score is zero. CONCLUSION: I will call this study a normal myocardial perfusion study without any convincing ischemia or infarction. Summed stress score is zero. Preserved LV function. Overall, low-risk myocardial perfusion scan. Devonte Stern - TRUDY/josemanuel/KEVIN doc#: [id number]/job#: [id number] dd: 12/15/2023 17:14:00 dt: 12/15/2023 17:57:00 DICTATING MD/COPIES TO: Adolfo Renteria MD COPIES MNE: TRAMAINE;
== END ==
PROVIDERS: PCP Family Medicine; Referring Provider Internal Medicine Cardiovascular Disease; Visit Provider Internal Medicine Cardiovascular Disease
DX: I25.10 Atherosclerotic heart disease of native coronary artery without angina pectoris (principal); R07.9 Chest pain, unspecified; Z95.5 Presence of coronary angioplasty implant and graft
CPT/HCPCS: 78452; 93017; A9502; J2785

== ENCOUNTER → 2023-12-22 08:17 | Outpatient (CLI) | payer MEDICARE, SELFPAY ==
[2023-01-02 19:54] VITALS: BMI 22.9
[2023-12-22 09:42] LABS: BUN Creatinine Ratio 23.8 (6-22); Blood Urea Nitrogen 25 mg/dL (9-20); Calcium 9.5 mg/dL (8.4-10.2); Carbon Dioxide 22 mmol/L (22-32); Chloride 99 mmol/L (98-107); Cholesterol 110 mg/dL (140-199); Estimated Glomerular Filt Rate > 60 mL/min (>60); Glucose 152 mg/dL (80-110); HDL Cholesterol 43 mg/dL (40-60); HEMOLYSIS < 15 (0-50); Hemoglobin A1C% w Est Avg Glu 7.7 % (4.0-6.0); LDL Cholesterol Calculated 44 mg/dL (<100); Potassium 3.6 mmol/L (3.4-5.1); Sodium 134 mmol/L (137-145); Triglycerides 115 mg/dL (35-150); Uric Acid 4.1 mg/dL (3.5-8.5)
[2023-12-22 09:58] LABS: Creatinine Urine Random 42.64 mg/dL
[2023-12-22 10:18] LABS: Microalbumin Urine Random < 0.6 mg/dL (0-1.6)
[2023-12-22 10:29] LABS: Vitamin B12 253 pg/mL (239-931)
[2023-12-22 10:45] LABS: Hep C Virus Ab w/Reflex Quant NEGATIVE s/c (NEGATIVE)
== END ==
PROVIDERS: PCP Family Medicine; Referring Provider Family Medicine; Visit Provider Family Medicine
DX: E11.69 Type 2 diabetes mellitus with other specified complication (principal); E78.5 Hyperlipidemia, unspecified; I25.10 Atherosclerotic heart disease of native coronary artery without angina pectoris; I10 Essential (primary) hypertension; E87.6 Hypokalemia
CPT/HCPCS: 80048; 80061; 82043; 82570; 82607; 83036; 84550; 86803

== ENCOUNTER → 2024-04-19 15:16 | Outpatient (CLI) | payer MEDICARE, SELFPAY ==
[2023-01-02 19:54] VITALS: BMI 22.9
[2024-04-19 17:31] LABS: Hematocrit 53.1 % (41-53); Hemoglobin 17.8 g/dL (13.5-17.5); Mean Corpuscular HGB Conc 33.6 % (30-36); Mean Corpuscular Hemoglobin 31.5 PG (26-34); Mean Corpuscular Volume 93.7 fL (80-100); Platelet Count 139 X10^3/uL (150-400); Red Blood Cell Count 5.66 X10^6/uL (4.5-5.9); Red Cell Distribution Width 14.5 % (11.6-14.8); White Blood Cell Count 7.2 X10^3/uL (4.5-11.0)
[2024-04-19 18:12] LABS: Blood Urea Nitrogen 15 mg/dL (9-20); Calcium 9.5 mg/dL (8.4-10.2); Carbon Dioxide 29 mmol/L (22-32); Chloride 102 mmol/L (98-107); Cholesterol 132 mg/dL (140-199); Estimated Glomerular Filt Rate > 60 mL/min (>60); Glucose 185 mg/dL (80-110); HDL Cholesterol 46 mg/dL (40-60); HEMOLYSIS 16 (0-50); LDL Cholesterol Calculated 55 mg/dL (<100); Potassium 3.5 mmol/L (3.4-5.1); Sodium 138 mmol/L (137-145); Triglycerides 157 mg/dL (35-150)
== END ==
PROVIDERS: PCP Family Medicine; Referring Provider Internal Medicine Cardiovascular Disease; Visit Provider Internal Medicine Cardiovascular Disease
DX: I25.10 Atherosclerotic heart disease of native coronary artery without angina pectoris (principal)
CPT/HCPCS: 36415; 80048; 80061; 85027

== ENCOUNTER → 2024-08-10 08:17 | Outpatient (CLI) | payer MEDICARE, SELFPAY ==
[2023-01-02 19:54] VITALS: BMI 22.9
[2024-08-10 09:36] LABS: Hemoglobin A1C% w Est Avg Glu 7.9 % (4.0-6.0)
== END ==
LOC: LAB 08:18
PROVIDERS: PCP Family Medicine; Referring Provider Family Medicine; Visit Provider Family Medicine
DX: E11.9 Type 2 diabetes mellitus without complications (principal)
CPT/HCPCS: 36415; 83036

== ENCOUNTER → 2025-04-28 15:16 | Outpatient (CLI) | payer MEDICARE, SELFPAY ==
[2023-01-02 19:54] VITALS: BMI 22.9
[2025-04-28 15:57] LABS: Add Manual Diff / Slide Review NO; Hematocrit 51.0 % (41-53); Hemoglobin 17.6 g/dL (13.5-17.5); Lymphocytes Absolute Auto 1700 /uL (1100-4500); Mean Corpuscular HGB Conc 34.5 % (30-36); Mean Corpuscular Hemoglobin 31.7 PG (26-34); Mean Corpuscular Volume 91.8 fL (80-100); Platelet Count 120 X10^3/uL (150-400)
[2025-04-28 16:25] LABS: Blood Urea Nitrogen 13 mg/dL (9-20); Calcium 9.2 mg/dL (8.4-10.2); Carbon Dioxide 23 mmol/L (22-32); Chloride 103 mmol/L (98-107); Cholesterol 105 mg/dL (140-199); Estimated Glomerular Filt Rate > 60 mL/min (>60); Glucose 187 mg/dL (70-99); HDL Cholesterol 45 mg/dL (40-60); HEMOLYSIS < 15 (0-50); Potassium 3.9 mmol/L (3.4-5.1); Sodium 138 mmol/L (137-145); Triglycerides 178 mg/dL (35-150)
== END ==
PROVIDERS: PCP Family Medicine; Referring Provider Internal Medicine Cardiovascular Disease; Visit Provider Internal Medicine Cardiovascular Disease
DX: I25.10 Atherosclerotic heart disease of native coronary artery without angina pectoris (principal)
CPT/HCPCS: 36415; 80048; 80061; 85025